=== PATIENT | male | born 1960 | race Caucasian/White ===

== ENCOUNTER 2019-11-05 08:27 | Emergency (ER) | payer BC, OTHER, SELFPAY ==
[2019-11-05 08:35] VITALS: BP 109/75; PULSE 93; RESP 19; TEMP 36.7; O2SAT 99
--- NOTE | 2019-11-05 08:40 | DI.RAD.S_ITS ---
PROCEDURE: XR CHEST 1V INDICATIONS: leg swelling, possible syncope TECHNIQUE: One view of the chest was acquired. COMPARISON: None. FINDINGS: Surgical changes and devices: None. Lungs and pleura: Lungs are clear. No pleural effusions or pneumothorax. Mediastinum: Mediastinal contours appear normal. Heart size is normal. Bones and chest wall: No suspicious bony lesions. Overlying soft tissues appear unremarkable. IMPRESSION: No acute process. Dictated by: Mark Anthony Zuniga M.D. on 11/05/2019 at 9:11 Approved by: Mark Anthony Zuniga M.D. on 11/05/2019 at 9:11
[2019-11-05 09:04] VITALS: BMI 20.3
[2019-11-05 09:15] VITALS: BP 96/59; PULSE 98; RESP 17; O2SAT 99
--- NOTE | 2019-11-05 09:29 | ED.EXTPRO ---
HPI - Extremity Problem General Chief complaint: Extremity Problem,Nontraumatic Stated complaint: both legs swollen Time Seen by Provider: 11/05/19 08:29 Source: patient Mode of arrival: Family Vehicle Limitations: no limitations History of Present Illness HPI Narrative: 59-year-old male daily smoker with noncontributory medical history presents with his family member in the chief complaint of lower extremity swelling over the past few days to weeks. He denies any chest pain or shortness of breath. He denies fever or chills. He denies any dietary or medication change. He states this happened once before after eating a significant amount of fast food. He states that he has been living a slightly more sedentary lifestyle due to the [employer] and frequently has his legs hanging down from a chair or couch. He denies any history of cardiac, renal or liver problems MD Complaint: extremity swelling Onset (ago): week(s) Location: left and right Radiation: none Relieving factors: nothing Exacerbating factors: nothing Associated symptoms: denies other symptoms Related Data Previous Rx's Medication Instructions Recorded furosemide 20 mg PO DAILY #7 tab 11/05/19 Allergies Allergy/AdvReac Type Severity Reaction Status Date / Time No Known Drug Allergies Allergy Verified 11/05/19 09:09 Review of Systems Constitutional Constitutional: Denies chills, Denies fatigue, Denies fever(s), Denies frequent falls, Denies lethargy and Denies weakness Eyes Eyes: Denies change in vision, Denies eye discharge, Denies irritation and Denies loss of vision ENT Ears, Nose, Mouth, and Throat: Denies change in voice, Denies dizziness, Denies neck pain, Denies sore throat and Denies throat swelling Cardiovascular Cardiovascular: Denies chest pain, Reports pedal edema, Denies irregular heart rhythm, Denies lightheadedness, Denies palpitations, Denies dyspnea, Denies dyspnea on exertion and Denies orthopnea Respiratory Respiratory: Denies cough, Denies dyspnea, Denies dyspnea on exertion and Denies wheezing Gastrointestinal Gastrointestinal: Denies abdominal pain, Denies change in bowel habits, Denies diarrhea, Denies nausea and Denies vomiting Genitourinary Genitourinary: Denies hematuria, Denies flank pain, Denies urinary incontinence and Denies urinary urgency Musculoskeletal Musculoskeletal: Denies back pain, Denies muscle weakness, Denies neck pain, Denies numbness and Denies tingling Integumentary/Breasts Skin/Breast: Denies pruritus, Denies erythema, Denies rash and Denies wounds Neurologic Neurologic: Denies behavioral changes, Denies confusion, Denies dizziness, Denies frequent falls, Denies loss of vision, Denies numbness, Denies tingling and Denies weakness Psychiatric Psychiatric: Denies anxiety, Denies behavioral changes, Denies confusion, Denies depression, Denies homicidal ideation and Denies suicidal ideation Endocrine Endocrine: Denies fatigue, Denies flushing and Denies palpitations Hematologic/Lymphatic Hematologic/Lymphatic: Denies easy bruising Allergic/Immunologic Allergic/Immunologic: Denies urticaria, Denies throat swelling and Denies wheezing Patient History Social History Smoking Status: Current every day smoker Smoking Status: Current every day smoker tobacco type: cigarettes Substance Use Type: does not use Exam Narrative Exam Narrative: GENERAL: [59] year old patient appears stated age. Well-nourished, well-developed patient, in mild distress. HEAD: Atraumatic. Normocephalic. EYES: Pupils equal round and reactive. Extraocular motions intact. No scleral icterus. No injection or drainage. ENT: Nose without bleeding, purulent drainage. Throat without erythema, tonsillar hypertrophy or exudate. Airway patent. NECK: Trachea midline. Non tender CARDIOVASCULAR: Regular rate and rhythm without murmurs, gallops, or rubs. RESPIRATORY: Decreased breath sounds bilaterally with prolonged expiratory phase GASTROINTESTINAL: Abdomen soft, non-tender, nondistended. EXTREMITIES: 2+ pitting edema bilateral lower extremities with minimal erythema, no pain or tenderness BACK: Nontender without deformity or crepitance. No flank tenderness. NEURO: AOx3. SKIN: No rash or erythema of visible areas other than that which is noted above Initial Vital Signs Initial Vital Signs: Vital Signs Temperature 98.0 F 11/05/19 08:35 Pulse Rate 93 H 11/05/19 08:35 Respiratory Rate 19 11/05/19 08:35 Blood Pressure 109/75 11/05/19 08:35 Pulse Oximetry 99 11/05/19 08:35 Course Orders Ordered: ED Orders 11/05/19 08:40 XR chest 1V Stat EKG-12 Lead Stat 11/05/19 09:18 Complete Blood Count AUTO DIFF Stat Comprehensive Metabolic Panel Stat D Dimer Stat Lipase Stat NT-proBNP (BNP-Adult 18+) Stat Procalcitonin Stat Troponin & CK Cardiac Panel Stat Discontinued Medications Sodium Chloride (Normal Saline 0.9%) 1,000 mls @ 150 mls/hr IV CONT ALEX Last Admin: 11/05/19 09:31 Dose: 150 mls/hr Documented by: JONNATHAN Vital Signs Vital signs: Vital Signs - 8 hr 11/05/19 08:35 11/05/19 09:15 11/05/19 10:58 Temperature 98.0 F Pulse Rate 93 H 98 H 96 H Respiratory Rate 19 17 20 Blood Pressure 115/75 Blood Pressure [Right Arm] 109/75 96/59 L Pulse Oximetry 99 99 98 MDM - Extremity (Nontraumatic) Lab Data Result diagrams: 11/05/19 09:18 11/05/19 09:18 Labs: Lab Results 11/05/19 11/05/19 11/05/19 Range/Units 09:18 09:18 09:18 WBC 8.1 (4.5-11.0) X10^3/uL RBC 3.33 L (4.5-5.9) X10^6/uL Hgb 12.3 L (13.5-17.5) g/dL Hct 35.5 L (41-53) % MCV 106.6 H (80-100) fL MCH 36.9 H (26-34) PG MCHC 34.6 (30-36) % RDW 13.5 (11.6-14.8) % Plt Count 532 H (150-400) X10^3/uL Neut % (Auto) 63.0 (50-75) % Lymph % (Auto) 25.2 (25-40) % Mccormick % (Auto) 6.9 (3-14) % Eos % (Auto) 3.6 (2-4) % Baso % (Auto) 1.3 (0-2) % Neut # (Auto) 5100 (1453-5894) /uL Lymph # (Auto) 2000 (1035-4004) /uL Mccormick # (Auto) 600 (0-900) /uL Eos # (Auto) 300 (0-450) /uL Baso # (Auto) 100 (0-100) /uL D-Dimer < 200 (<230) ng/mL Sodium 138 (137-145) mmol/L Potassium 4.2 (3.4-5.1) mmol/L Chloride 102 (98-107) mmol/L Carbon Dioxide 26 (22-32) mmol/L BUN 13 (9-20) mg/dL Creatinine 0.80 (0.66-1.25) mg/dL Estimated GFR > 60.0 (>60) mL/min BUN/Creatinine Ratio 16.3 (6-22) Glucose 92 (80-110) mg/dL Calcium 9.1 (8.4-10.2) mg/dL Total Bilirubin 0.2 (0.2-1.3) mg/dL AST 34 (17-59) IU/L ALT 45 (<50) IU/L Alkaline Phosphatase 98 (38-126) U/L Total Creatine Kinase 54 L (55-170) U/L CK-MB (CK-2) TNP CK-MB (CK-2) Rel Index TNP Troponin I < 0.012 (0.01-0.034) ng/mL NT-Pro-B Natriuret Pep 58 (<125) pg/mL Total Protein 7.5 (6.3-8.2) g/dL Albumin 4.3 (3.5-5.0) g/dL Globulin 3.2 (1.7-4.1) g/dL Albumin/Globulin Ratio 1.3 (1.0-2.8) Lipase 49 (23-300) U/L Procalcitonin (<0.5) ng/mL 11/05/19 Range/Units 09:18 WBC (4.5-11.0) X10^3/uL RBC (4.5-5.9) X10^6/uL Hgb (13.5-17.5) g/dL Hct (41-53) % MCV (80-100) fL MCH (26-34) PG MCHC (30-36) % RDW (11.6-14.8) % Plt Count (150-400) X10^3/uL Neut % (Auto) (50-75) % Lymph % (Auto) (25-40) % Mccormick % (Auto) (3-14) % Eos % (Auto) (2-4) % Baso % (Auto) (0-2) % Neut # (Auto) (4951-5269) /uL Lymph # (Auto) (6501-9843) /uL Mccormick # (Auto) (0-900) /uL Eos # (Auto) (0-450) /uL Baso # (Auto) (0-100) /uL D-Dimer (<230) ng/mL Sodium (137-145) mmol/L Potassium (3.4-5.1) mmol/L Chloride (98-107) mmol/L Carbon Dioxide (22-32) mmol/L BUN (9-20) mg/dL Creatinine (0.66-1.25) mg/dL Estimated GFR (>60) mL/min BUN/Creatinine Ratio (6-22) Glucose (80-110) mg/dL Calcium (8.4-10.2) mg/dL Total Bilirubin (0.2-1.3) mg/dL AST (17-59) IU/L ALT (<50) IU/L Alkaline Phosphatase (38-126) U/L Total Creatine Kinase (55-170) U/L CK-MB (CK-2) CK-MB (CK-2) Rel Index Troponin I (0.01-0.034) ng/mL NT-Pro-B Natriuret Pep (<125) pg/mL Total Protein (6.3-8.2) g/dL Albumin (3.5-5.0) g/dL Globulin (1.7-4.1) g/dL Albumin/Globulin Ratio (1.0-2.8) Lipase (23-300) U/L Procalcitonin 0.09 (<0.5) ng/mL Urine Dip Bedside Urine Glucose Negative Bedside Urine Bilirubin - Negative Bedside Urine Ketone - Negative Urine Specific [place] 1.010 Bedside Urine Occult Blood - Negative Bedside Urine pH 6.0 Bedside Urine Protein - Negative Bedside Urine Urobilinogen - Negative Bedside Urine Nitrite - Negative Bedside Urine Leukocytes - Negative Esterase Imaging Data Chest x-ray: Radiologist's Impression: Chart Viewer Diagnostics DATE TYPE STATUS AUTHOR Hx 11/05/19 08:40 Mark Anthony Zuniga Michael S 59, M0 1960 REG ER, [facility] ED R11 170.18cm 58.967kg BMI: 20.4kg/m? Extremity Problem,Nontraumatic Search Chart No Data to Display No Data to Display No Data to Display Today 09:15 Bello Mcdonald 59 M [address] [address] XRay Report Signed Patient: Bello Mcdonald [facility]#: [id number] : 9Acct:[id number] Age/Sex: 59 / MDate of Service: 11/05/19 Loc: ED Accession Number: [id number] Procedure: XR chest 1V Ordering Provider: Jose Antonio Rizzo D.O. PROCEDURE: XR CHEST 1V INDICATIONS: leg swelling, possible syncope TECHNIQUE: One view of the chest was acquired. COMPARISON: None. FINDINGS: Surgical changes and devices: None. Lungs and pleura: Lungs are clear. No pleural effusions or pneumothorax. Mediastinum: Mediastinal contours appear normal. Heart size is normal. Bones and chest wall: No suspicious bony lesions. Overlying soft tissues appear unremarkable. IMPRESSION: No acute process. Dictated by: Mark Anthony Zuniga M.D. on 11/05/2019 at 9:11 Approved by: Mark Anthony Zuniga M.D. on 11/05/2019 at 9:11 ECG Data Attestation EKG: I personally reviewed and interpreted this ECG as follows: Interpretation: Mild sinus tachycardia with rate 103 and free of any signs of ischemia or ectopy. No ST segmental elevation or depression. No T wave inversions MDM Narrative Medical decision making narrative: Multiple diagnoses considered includin. DVT - thought less likely given bilateral distribution, negative DDimer, lack of pain 2. Cellulilitis - thought less likely given bilateral distribution, lack of pain, reassuring labs 3. CHF considered but thought less likely given lack of other symptoms such as SOB or weakness, lack of abnormal vitals, CXR findings, normal BNP 4. Kidney disease - thought less likely given lack of other symptoms and reassuring labs 5. Dependent edema considered most likely given reassuring story, labs, exam Patient given return precautions and has had is question answered to his apparent satisfaction Discharge Plan Departure Patient Disposition: Home Clinical Impression: Lower extremity edema Discharge Date/Time: 11/05/19 10:59 Instructions: DI for Dependent Edema Activity Restrictions/Additional Instructions: *You have been diagnosed with [bilateral lower extremity edema] *What to do: *Take medications as directed *Follow up with your primary care provider in 2-3 days, call for an appointment. Let them know you were seen in the Emergency Department and that we ask that you be seen in follow up *Return to ER if you should have any new, worsening or concerning symptoms, such as [chest pain, shortness of breath, fever, chills or other bothersome symptoms] Prescriptions: New furosemide 20 mg tablet 20 mg PO DAILY Qty: 7 RF: 0 Referrals: [facility] [Outside]
[2019-11-05 09:30] LABS: Add Manual Diff / Slide Review NO; Basophils Absolute Auto 100 /uL (0-100); Basophils Percent Auto 1.3 % (0-2); Eosinophils Absolute Auto 300 /uL (0-450); Eosinophils Percent Auto 3.6 % (2-4); Hematocrit 35.5 % (41-53); Hemoglobin 12.3 g/dL (13.5-17.5); Lymphocytes Absolute Auto 2000 /uL (1100-4500); Lymphocytes Percent Auto 25.2 % (25-40); Mean Corpuscular HGB Conc 34.6 % (30-36); Mean Corpuscular Hemoglobin 36.9 PG (26-34); Mean Corpuscular Volume 106.6 fL (80-100); Monocytes Absolute Auto 600 /uL (0-900); Monocytes Percent Auto 6.9 % (3-14); Neutrophils Absolute Auto 5100 /uL (1500-7000); Platelet Count 532 X10^3/uL (150-400); Red Blood Cell Count 3.33 X10^6/uL (4.5-5.9); Red Cell Distribution Width 13.5 % (11.6-14.8); White Blood Cell Count 8.1 X10^3/uL (4.5-11.0)
[2019-11-05] MEDS: SODIUM CHLORIDE 0.9% 1,000 ML 150 ML IV (09:31)
[2019-11-05 09:38] LABS: D Dimer < 200 ng/mL (<230)
[2019-11-05 09:39] LABS: Alanine Aminotransferase 45 IU/L (<50); Albumin 4.3 g/dL (3.5-5.0); Albumin Globulin Ratio 1.3 (1.0-2.8); Alkaline Phosphatase 98 U/L (38-126); Aspartate Aminotransferase 34 IU/L (17-59); BUN Creatinine Ratio 16.3 (6-22); Bilirubin Total 0.2 mg/dL (0.2-1.3); Blood Urea Nitrogen 13 mg/dL (9-20); Calcium 9.1 mg/dL (8.4-10.2); Carbon Dioxide 26 mmol/L (22-32); Chloride 102 mmol/L (98-107); Creatine Kinase 54 U/L (55-170); Estimated Glomerular Filt Rate > 60.0 mL/min (>60); Globulin 3.2 g/dL (1.7-4.1); Glucose 92 mg/dL (80-110); HEMOLYSIS < 15 (0-50); Lipase 49 U/L (23-300); Potassium 4.2 mmol/L (3.4-5.1); Sodium 138 mmol/L (137-145); Total Protein 7.5 g/dL (6.3-8.2)
[2019-11-05 09:51] LABS: NT-proBNP (BNP-Adult 18+) 58 pg/mL (<125); Troponin I < 0.012 ng/mL (0.01-0.034)
[2019-11-05 09:54] LABS: Procalcitonin 0.09 ng/mL (<0.5)
[2019-11-05 10:58] VITALS: BP 115/75; PULSE 96; RESP 20; O2SAT 98
== END 2019-11-05 10:59 | disposition home or self-care (01) ==
PROVIDERS: Emergency Provider Emergency Medicine
DX: R60.0 Localized edema (principal)
CPT/HCPCS: 36415; 71045; 80053; 81003; 82550; 83690; 83880; 84145; 84484; 85025; 85379; 93005; 99284

== ENCOUNTER 2020-03-10 18:53 | Emergency (ER) | payer OTHER, SELFPAY ==
[2020-03-10 19:00] VITALS: BP 110/76; PULSE 112; RESP 21; TEMP 36.8; O2SAT 94; BMI 20.7
[2020-03-10 19:02] VITALS: PULSE 108; O2SAT 93
[2020-03-10 19:36] VITALS: PULSE 94; O2SAT 94
--- NOTE | 2020-03-10 19:41 | ED.EXTPRO ---
HPI - Extremity Problem General Chief complaint: Extremity Problem,Nontraumatic Stated complaint: bilateral edema lower legs Time Seen by Provider: 03/10/20 19:18 Source: patient Mode of arrival: Ambulatory Limitations: no limitations History of Present Illness HPI Narrative: Patient is a 60-year-old male. History of high blood pressure. Here for evaluation of bilateral lower extremity swelling and redness. He states that he has had lower extremity swelling for the past month if not potentially a little bit longer but has noticed it has become more red and painful over the past couple days. No fevers. No chest pain. No shortness of breath. He has on hydrochlorothiazide and also 20 mg of furosemide on a daily basis this is prescribed by his primary provider. He states that he went about 1 month without taking any of his medications because he was going through a ?decision period with regard to what he was going to do at work and also his health. He has restarted his medications and has been on them for the past week or so. He stated that he has been given antibiotics in the past because of the redness in his lower extremity. He took them as directed and there was no improvement. He is here because the swelling makes his legs hurt. Related Data Previous Rx's Medication Instructions Recorded furosemide 20 mg PO DAILY #7 tab 11/05/19 Allergies Allergy/AdvReac Type Severity Reaction Status Date / Time No Known Drug Allergies Allergy Verified 03/10/20 19:05 Review of Systems Constitutional Constitutional: Denies fever(s) Cardiovascular Cardiovascular: Denies chest pain and Denies dyspnea Respiratory Respiratory: Denies dyspnea Gastrointestinal Gastrointestinal: Denies abdominal pain Musculoskeletal Comments: Bilateral leg pain Integumentary/Breasts Comments: Redness and swelling bilateral legs Neurologic Neurologic: Denies behavioral changes Psychiatric Psychiatric: Denies behavioral changes Hematologic/Lymphatic Hematologic/Lymphatic: Denies easy bleeding and Denies easy bruising Patient History Medical History Hypertension (Acute) Peripheral edema (Acute) Social History Smoking Status: Current every day smoker Smoking Status: Current every day smoker tobacco type: cigarettes alcohol intake frequency: 3 or more drinks per day Substance Use Type: does not use Exam Initial Vital Signs Initial Vital Signs: Vital Signs Temperature 98.3 F 03/10/20 19:00 Pulse Rate 112 H 03/10/20 19:00 Respiratory Rate 21 03/10/20 19:00 Blood Pressure 110/76 03/10/20 19:00 Pulse Oximetry 94 03/10/20 19:00 Const General: cooperative and comfortable Limitations: mental status not altered [facility] Head: normal to inspection and normocephalic Resp Effort & Inspection: normal respiratory effort Cardio Rate: regular rate Pulses: dorsalis pedis present bilaterally Skin Other: Patient has bilateral redness circumferential from his toes to just proximal to his knees bilaterally. Some warmth however it is equal bilaterally. There is lichenification and pitting secondary to edema. Some crust on the anterior shins bilaterally with left being greater than right Neuro General: patient alert and patient awake Extrem General: edema Psych Appearance: grossly normal and well kempt Course Vital Signs Vital signs: Vital Signs - 8 hr 03/10/20 19:00 03/10/20 19:02 03/10/20 19:36 Temperature 98.3 F Pulse Rate 112 H 108 H 94 H Respiratory Rate 21 Blood Pressure 110/76 Pulse Oximetry 94 93 94 03/10/20 20:00 Temperature Pulse Rate 94 H Respiratory Rate Blood Pressure Pulse Oximetry 93 MDM - Extremity (Nontraumatic) MDM Narrative Medical decision making narrative: No chest pain. No shortness of breath. Patient does have bilateral lower extremity redness and swelling. The redness appears to be equal bilateral. He has been on antibiotics in the past without any improvement and I feel that this is less likely an infection and more likely venous stasis changes. He does have lichenification bilaterally. His legs look like they have been swollen for an extended period of time. He is neurovascularly intact. There is no indication for antibiotics. He is taking HCTZ and furosemide. Plan to bees increase his furosemide to 40 mg on a daily basis. He states he has plenty of this medication at home. Informed that he should contact his primary doctor to discuss referral to see Cardiology and potentially an echocardiogram as he states he has not had this performed to this point. We also discussed importance of him keeping his feet clean and dry as when I took his socks off for his exam they were soaking wet with sweat. He states that his feet do sweat quite a bit. We discussed things he could do to include changing his socks often. Patient was given return precautions and follow-up instructions. He expressed understanding and agreement. Discharge Plan Departure Patient Disposition: Home Clinical Impression: Lower extremity edema Discharge Date/Time: 03/10/20 20:20 Instructions: DI for Peripheral Edema -- Bilateral Activity Restrictions/Additional Instructions: I recommend that you continue your lisinopril and hydrochlorothiazide as directed. I recommend that you increase your furosemide/Lasix from 20 mg a day to 40 mg a day. Like we discussed I also recommend that you change your socks frequently and keep your feet elevated. I recommend that tomorrow you contact her primary doctor's office to schedule a follow-up appointment and to discuss the indications for further testing of your heart to include an echocardiogram. Return to the emergency department for any new or worsening symptoms Prescriptions: No Action furosemide 20 mg tablet 20 mg PO DAILY Qty: 7 RF: 0
[2020-03-10 20:00] VITALS: PULSE 94; O2SAT 93
== END 2020-03-10 20:20 | disposition home or self-care (01) ==
PROVIDERS: Emergency Provider Emergency Medicine
DX: R60.0 Localized edema (principal); M79.605 Pain in left leg; M79.604 Pain in right leg; I10 Essential (primary) hypertension
CPT/HCPCS: 99281

== ENCOUNTER 2020-12-26 12:11 | Inpatient (IN) | payer OTHER, SELFPAY ==
[2020-12-26] VITALS (20 sets, daily range): BP systolic 98–139; BP diastolic 54–88; PULSE 103–116; RESP 15–22; TEMP 36.1–37.3; O2SAT 90–100; BMI 25.0
--- NOTE | 2020-12-26 12:29 | DI.RAD.S_ITS ---
PROCEDURE: XR CHEST 1V INDICATIONS: suspected sepsis TECHNIQUE: One view of the chest was acquired. COMPARISON: [facility], CR, XR CHEST 1V, 11/05/2019, 9:02. FINDINGS: Surgical changes and devices: None. Lungs and pleura: Lungs are clear. No pleural effusions or pneumothorax. Mediastinum: Mediastinal contours appear normal. Heart size is normal. Bones and chest wall: No suspicious bony lesions. Overlying soft tissues appear unremarkable. IMPRESSION: Normal for age, source of current sepsis symptoms is not seen. Dictated by: Daniel Garcia M.D. on 12/26/2020 at 13:34 Approved by: Daniel Garcia M.D. on 12/26/2020 at 13:34
[2020-12-26 13:08] LABS: Add Manual Diff / Slide Review NO; Basophils Absolute Auto 100 /uL (0-100); Basophils Percent Auto 0.9 % (0-2); Eosinophils Absolute Auto 100 /uL (0-450); Eosinophils Percent Auto 0.8 % (2-4); Hematocrit 34.4 % (41-53); Hemoglobin 11.9 g/dL (13.5-17.5); Lymphocytes Absolute Auto 1500 /uL (1100-4500); Lymphocytes Percent Auto 12.3 % (25-40); Mean Corpuscular HGB Conc 34.5 % (30-36); Mean Corpuscular Hemoglobin 34.2 PG (26-34); Monocytes Absolute Auto 700 /uL (0-900); Monocytes Percent Auto 5.6 % (3-14); Neutrophils Absolute Auto 9700 /uL (1500-7000); Neutrophils Percent Auto 80.4 % (50-75); Platelet Count 466 X10^3/uL (150-400); Red Blood Cell Count 3.48 X10^6/uL (4.5-5.9); Red Cell Distribution Width 13.1 % (11.6-14.8); White Blood Cell Count 12.1 X10^3/uL (4.5-11.0)
[2020-12-26 13:17] LABS: Lactate (Lactic Acid) 1.7 mmol/L (0.7-2.1)
[2020-12-26 13:18] LABS: Alanine Aminotransferase 26 IU/L (<50); Albumin 3.7 g/dL (3.5-5.0); Albumin Globulin Ratio 1.1 (1.0-2.8); Alkaline Phosphatase 128 U/L (38-126); Aspartate Aminotransferase 39 IU/L (17-59); BUN Creatinine Ratio 9.2 (6-22); Bilirubin Total 0.3 mg/dL (0.2-1.3); Blood Urea Nitrogen 6 mg/dL (9-20); Calcium 8.8 mg/dL (8.4-10.2); Carbon Dioxide 24 mmol/L (22-32); Chloride 92 mmol/L (98-107); Creatine Kinase 251 U/L (55-170); Estimated Glomerular Filt Rate > 60.0 mL/min (>60); Globulin 3.3 g/dL (1.7-4.1); Glucose 96 mg/dL (80-110); HEMOLYSIS < 15 (0-50); Lipase 32 U/L (23-300); Potassium 4.4 mmol/L (3.4-5.1); Sodium 123 mmol/L (137-145)
--- NOTE | 2020-12-26 13:23 | ED_ITS ---
HPI - Wound/Laceration General Chief Complaint: Wound/Laceration Stated Complaint: legs are swollen and legs look infected Time Seen by Provider: 12/26/20 12:41 History of Present Illness HPI narrative: Patient is a 60-year-old male with history of hypertension, COPD and chronic lower extremity edema presenting with increasing lower extremity weakness. He does have significant crusted over skin in both extremities. He has had weeping from bilateral lower extremities somewhat so that his socks were stuck to him. He is progressively gotten weaker over time however over the last week it has gotten much worse and his last night he was really unable to get around. He needed to call the ambulance today to get him to the car he did not want to come by ambulance. He denies any fever chills. He does have a cough but he does is not any worse. He occasionally has chest pain but it is not any chest pain now. Related Data Home Medications Medication Instructions Recorded Confirmed albuterol sulfate 90 mcg/actuation 2 puff INHALATION Q4H PRN 12/26/20 12/26/20 aerosol inhaler (ProAir HFA) furosemide 40 mg tablet 40 mg PO QAM 12/26/20 12/26/20 lisinopril 20 mg tablet 20 mg PO QAM 12/26/20 12/26/20 lisinopril 20 1 tab PO QAM 12/26/20 12/26/20 mg-hydrochlorothiazide 25 mg tablet potassium chloride 20 mEq 20 meq PO QAM 12/26/20 12/26/20 tablet,extended release(part/cryst) Allergies Allergy/AdvReac Type Severity Reaction Status Date / Time No Known Drug Allergies Allergy Verified 03/10/20 19:05 Review of Systems Review of Systems Narrative: GENERAL: Denies chills, fatigue, malaise, fever, sweats, travel HEENT: Denies sinus pain, ear pain, sore throat, difficulty swallowing, neck pain RESPIRATORY: Denies dyspnea, cough, wheezing, hemoptysis, sputum. CARDIOVASCULAR: Denies chest pain, palpitations, orthopnea, edema GASTROINTESTINAL: Denies nausea, vomiting, abdominal pain, diarrhea, constipation, melena. : Denies dysuria, frequency, incontinence, hematuria, urinary retention, flank pain. MUSCULOSKELETAL: Denies weakness, joint pain, or bony pain SKIN: Chronic worsening wounds NEUROLOGIC: Denies weakness, dizziness, headache, numbness, change in speech, confusion PSYCHIATRIC: No concerning psychosocial issues. 12 point review of systems is negative except for those stated above and HPI Patient History Medical History (Updated 12/26/20 @ 16:28 by Joel Bañuelos MD) Alcohol dependence, daily use Hypertension Nicotine addiction Peripheral edema Surgical History (Updated 12/26/20 @ 16:28 by Joel Bañuelos MD) History of appendectomy Family History (Updated 12/26/20 @ 16:29 by Joel Bañuelos MD) Father Myocardial infarct Diabetes mellitus Mother Diabetes mellitus Myocardial infarct Stroke Social History household members: none Smoking Status: Current every day smoker Smoking Status: Current every day smoker tobacco type: cigarettes alcohol intake frequency: 3 or more drinks per day Substance Use Type: does not use Exam Initial Vital Signs Initial Vital Signs: Vital Signs Temperature 96.9 F L 12/26/20 12:17 Pulse Rate 112 H 12/26/20 12:17 Respiratory Rate 16 12/26/20 12:17 Blood Pressure 112/88 12/26/20 12:17 Pulse Oximetry 98 12/26/20 12:17 GENERAL: 60-year-old male no acute distress HEENT: Head atraumatic,EOMI, pupils reactive, face symmetric, moist mucous membranes CARDIOVASCULAR: Regular rate and rhythm without murmurs, rubs or gallops. RESPIRATORY: Breath sounds equal bilaterally, no wheezes rales or rhonchi. ABDOMEN: Soft, nontender. Normoactive bowel sounds all 4 quadrants. No guarding or rebound. EXTREMITIES: Normal range of motion, no clubbing or edema. Neurovascularly intact NEUROLOGICAL: Alert and oriented x4.Normal gait and speech. SKIN: Lower extremities crusting and thick from knees to toes. Socks were stuck to the feet and had to be cut away. Smell was overwhelming. erythematous left foot is definitely more erythematous than the right Course Orders Ordered: ED Orders 12/26/20 12:29 XR chest 1V Stat EKG-12 Lead Stat RT Consult Eval and Treat Now 12/26/20 12:53 Complete Blood Count AUTO DIFF Stat Comprehensive Metabolic Panel Stat Lactate (Lactic Acid) Stat Lipase Stat NT-proBNP (BNP-Adult 18+) Stat Procalcitonin Stat Troponin & CK Cardiac Panel Stat 12/26/20 13:05 COVID19 - ADMIT (SLEEVE BOTTOM FELLER swab/PCR) Stat COVID19 -Nasal swab/Pre-Proc Stat 12/26/20 13:15 Blood Culture Stat Albuterol (Albuterol 2.5 Mg/3 Ml Neb (Adult)) 2.5 mg INH Q4H PRN PRN Reason: Wheezing Cefazolin Sodium (Cefazolin 1 Gm Vial) 2 gm IV Q8H ALEX Enoxaparin Sodium (Enoxaparin 40 Mg/0.4 Ml Syringe) 40 mg SUBCUT DAILY ALEX Hydromorphone HCl (Hydromorphone 0.5 Mg Inj) 0.5 mg IV Q6H PRN PRN Reason: Pain, Moderate (4-6) Dextrose/Sodium Chloride (Dextrose 5%-0.9% Ns) 1,000 mls @ 100 mls/hr IV CONT ALEX Naloxone HCl (Naloxone 0.4 Mg/Ml Vial) 0.2 mg IV Q2MIN PRN PRN Reason: Opiate Reversal Nicotine (Nicotine 21 Mg Patch) 21 mg TOP DAILY ALEX Oxycodone/Acetaminophen (Oxycodone/Acetaminophen 5/325 Tablet) 1 tab PO Q4HR PRN PRN Reason: Pain, Moderate (4-6) Sennosides (Sennosides 8.6 Mg Tablet) 17.2 mg PO BEDTIME ALEX Triamcinolone Acetonide (Triamcinolone 0.1% Cream) 1 applic TOP BID ALEX Discontinued Medications Albuterol/Ipratropium (Albuterol/Ipratropium 3 Ml Ampul) 3 ml INH NOW ONE Stop: 12/26/20 14:19 Last Admin: 12/26/20 14:35 Dose: 3 ml Documented by: LARRY Sodium Chloride (Normal Saline 0.9%) 1,000 mls @ 1,000 mls/hr IV BOLUS ONE Stop: 12/26/20 13:27 Last Admin: 12/26/20 12:59 Dose: Not Given Documented by: CARMEN Ceftriaxone Sodium 1,000 mg/ (Sodium Chloride) 100 mls @ 200 mls/hr IV NOW ONE Stop: 12/26/20 14:09 Last Infusion: 12/26/20 15:55 Dose: 0 mls/hr Documented by: Admin: 12/26/20 14:50 Dose: 200 mls/hr Documented by: OLGA Vancomycin HCl (Vancomycin) 1,000 mg in 200 mls @ 200 mls/hr IV NOW ONE Stop: 12/26/20 15:07 Last Infusion: 12/26/20 15:55 Dose: 0 mls/hr Documented by: Admin: 12/26/20 14:47 Dose: 200 mls/hr Documented by: OLGA CEFAZOLIN SODIUM IN 0.9 % NACL (Ancef Premix) 100 mls @ 200 mls/hr IV Q8H ALEX Lorazepam (Lorazepam 2 Mg/Ml Inj) 0.5 mg IV NOW ONE Stop: 12/26/20 15:11 Last Admin: 12/26/20 15:50 Dose: 0.5 mg Documented by: OLGA Nicotine (Nicotine 21 Mg Patch) 21 mg TOP NOW ONE Stop: 12/26/20 15:11 Last Admin: 12/26/20 15:48 Dose: 21 mg Documented by: OLGA Vital Signs Vital signs: Vital Signs - 8 hr 12/26/20 12:17 12/26/20 13:13 12/26/20 13:15 Temperature 96.9 F L Pulse Rate 112 H 107 H 104 H Respiratory Rate 16 19 16 Blood Pressure 112/88 107/63 Pulse Oximetry 98 98 97 12/26/20 13:30 12/26/20 13:45 12/26/20 14:00 Temperature Pulse Rate 107 H 107 H 109 H Respiratory Rate 20 20 19 Blood Pressure 117/64 116/65 107/60 Pulse Oximetry 98 99 100 12/26/20 14:15 12/26/20 14:30 12/26/20 14:45 Temperature Pulse Rate 105 H 103 H 105 H Respiratory Rate 20 18 16 Blood Pressure 104/57 L 102/58 L 98/57 L Pulse Oximetry 98 99 100 12/26/20 14:47 12/26/20 15:00 Temperature Pulse Rate 104 H 112 H Respiratory Rate 16 22 Blood Pressure 113/66 Pulse Oximetry 96 97 MDM - Wound/Laceration Lab Data Result diagrams: 12/26/20 12:53 12/26/20 12:53 Labs: Lab Results 12/26/20 12/26/20 12/26/20 Range/Units 12:53 12:53 12:53 WBC 12.1 H (4.5-11.0) X10^3/uL RBC 3.48 L (4.5-5.9) X10^6/uL Hgb 11.9 L (13.5-17.5) g/dL Hct 34.4 L (41-53) % MCV 99.0 (80-100) fL MCH 34.2 H (26-34) PG MCHC 34.5 (30-36) % RDW 13.1 (11.6-14.8) % Plt Count 466 H (150-400) X10^3/uL Neut % (Auto) 80.4 H (50-75) % Lymph % (Auto) 12.3 L (25-40) % [place] % (Auto) 5.6 (3-14) % Eos % (Auto) 0.8 L (2-4) % Baso % (Auto) 0.9 (0-2) % Neut # (Auto) 9700 H (4763-2722) /uL Lymph # (Auto) 1500 (0903-3540) /uL [place] # (Auto) 700 (0-900) /uL Eos # (Auto) 100 (0-450) /uL Baso # (Auto) 100 (0-100) /uL Sodium 123 L (137-145) mmol/L Potassium 4.4 (3.4-5.1) mmol/L Chloride 92 L (98-107) mmol/L Carbon Dioxide 24 (22-32) mmol/L BUN 6 L (9-20) mg/dL Creatinine 0.65 L (0.66-1.25) mg/dL Estimated GFR > 60.0 (>60) mL/min BUN/Creatinine Ratio 9.2 (6-22) Glucose 96 (80-110) mg/dL Lactate 1.7 (0.7-2.1) mmol/L Calcium 8.8 (8.4-10.2) mg/dL Magnesium (1.6-2.3) mg/dL Total Bilirubin 0.3 (0.2-1.3) mg/dL AST 39 (17-59) IU/L ALT 26 (<50) IU/L Alkaline Phosphatase 128 H (38-126) U/L Total Creatine Kinase (55-170) U/L CK-MB (CK-2) (<2.37) ng/mL CK-MB (CK-2) Rel Index (1.5-5.0) % Troponin I (0.01-0.034) ng/mL NT-Pro-B Natriuret Pep (<125) pg/mL Total Protein 7.0 (6.3-8.2) g/dL Albumin 3.7 (3.5-5.0) g/dL Globulin 3.3 (1.7-4.1) g/dL Albumin/Globulin Ratio 1.1 (1.0-2.8) Lipase 32 (23-300) U/L Procalcitonin 2.37 H (<0.5) ng/mL SARS-CoV-2 (PCR) (Negative) 12/26/20 12/26/20 12/26/20 Range/Units 12:53 12:53 13:05 WBC (4.5-11.0) X10^3/uL RBC (4.5-5.9) X10^6/uL Hgb (13.5-17.5) g/dL Hct (41-53) % MCV (80-100) fL MCH (26-34) PG MCHC (30-36) % RDW (11.6-14.8) % Plt Count (150-400) X10^3/uL Neut % (Auto) (50-75) % Lymph % (Auto) (25-40) % [place] % (Auto) (3-14) % Eos % (Auto) (2-4) % Baso % (Auto) (0-2) % Neut # (Auto) (2375-7856) /uL Lymph # (Auto) (8070-8121) /uL [place] # (Auto) (0-900) /uL Eos # (Auto) (0-450) /uL Baso # (Auto) (0-100) /uL Sodium (137-145) mmol/L Potassium (3.4-5.1) mmol/L Chloride (98-107) mmol/L Carbon Dioxide (22-32) mmol/L BUN (9-20) mg/dL Creatinine (0.66-1.25) mg/dL Estimated GFR (>60) mL/min BUN/Creatinine Ratio (6-22) Glucose (80-110) mg/dL Lactate (0.7-2.1) mmol/L Calcium (8.4-10.2) mg/dL Magnesium 1.7 (1.6-2.3) mg/dL Total Bilirubin (0.2-1.3) mg/dL AST (17-59) IU/L ALT (<50) IU/L Alkaline Phosphatase (38-126) U/L Total Creatine Kinase 251 H (55-170) U/L CK-MB (CK-2) 4.75 H (<2.37) ng/mL CK-MB (CK-2) Rel Index 1.9 (1.5-5.0) % Troponin I < 0.012 (0.01-0.034) ng/mL NT-Pro-B Natriuret Pep 96 (<125) pg/mL Total Protein (6.3-8.2) g/dL Albumin (3.5-5.0) g/dL Globulin (1.7-4.1) g/dL Albumin/Globulin Ratio (1.0-2.8) Lipase (23-300) U/L Procalcitonin (<0.5) ng/mL SARS-CoV-2 (PCR) Negative (Negative) 12/26/20 Range/Units 13:05 WBC (4.5-11.0) X10^3/uL RBC (4.5-5.9) X10^6/uL Hgb (13.5-17.5) g/dL Hct (41-53) % MCV (80-100) fL MCH (26-34) PG MCHC (30-36) % RDW (11.6-14.8) % Plt Count (150-400) X10^3/uL Neut % (Auto) (50-75) % Lymph % (Auto) (25-40) % [place] % (Auto) (3-14) % Eos % (Auto) (2-4) % Baso % (Auto) (0-2) % Neut # (Auto) (9956-3133) /uL Lymph # (Auto) (1790-6485) /uL [place] # (Auto) (0-900) /uL Eos # (Auto) (0-450) /uL Baso # (Auto) (0-100) /uL Sodium (137-145) mmol/L Potassium (3.4-5.1) mmol/L Chloride (98-107) mmol/L Carbon Dioxide (22-32) mmol/L BUN (9-20) mg/dL Creatinine (0.66-1.25) mg/dL Estimated GFR (>60) mL/min BUN/Creatinine Ratio (6-22) Glucose (80-110) mg/dL Lactate (0.7-2.1) mmol/L Calcium (8.4-10.2) mg/dL Magnesium (1.6-2.3) mg/dL Total Bilirubin (0.2-1.3) mg/dL AST (17-59) IU/L ALT (<50) IU/L Alkaline Phosphatase (38-126) U/L Total Creatine Kinase (55-170) U/L CK-MB (CK-2) (<2.37) ng/mL CK-MB (CK-2) Rel Index (1.5-5.0) % Troponin I (0.01-0.034) ng/mL NT-Pro-B Natriuret Pep (<125) pg/mL Total Protein (6.3-8.2) g/dL Albumin (3.5-5.0) g/dL Globulin (1.7-4.1) g/dL Albumin/Globulin Ratio (1.0-2.8) Lipase (23-300) U/L Procalcitonin (<0.5) ng/mL SARS-CoV-2 (PCR) Negative (Negative) MDM Narrative Medical decision making narrative: Patient has acute on chronic lower extremity cellulitis. Smell is quite intense. He sounded mild leukocytosis of 12 he is afebrile and does not appear septic with a normal lactate. However procalcitonin is elevated any has new increasing weakness so I do believe his is infection is probably acute. He is given vancomycin and Rocephin. Dr. so updated on patient's symptoms and test results and happily accepts Discharge Plan Departure Patient Disposition: Admitted as Observation Clinical Impression: Cellulitis Admit Date/Time: 12/26/20 15:08 Admit Provider: Joel Bañuelos
[2020-12-26 13:31] LABS: NT-proBNP (BNP-Adult 18+) 96 pg/mL (<125); Troponin I < 0.012 ng/mL (0.01-0.034)
[2020-12-26 13:32] LABS: COVID19 -Nasal RAPID Negative (Negative)
[2020-12-26 13:34] LABS: CKMB % Relative Index 1.9 % (1.5-5.0); Creatine Kinase MB 4.75 ng/mL (<2.37)
[2020-12-26 13:35] LABS: Procalcitonin 2.37 ng/mL (<0.5)
[2020-12-26 14:19] LABS: COVID19 - ADMIT (NP swab/PCR) Negative (Negative)
[2020-12-26] MEDS: ALBUTEROL/IPRATROPIUM 3 ML AMPUL INH (14:35)
[2020-12-26] MEDS: VANCOMYCIN 1,000 MG/200 ML PIGGYBACK 200 MG IV (14:47)
[2020-12-26] MEDS: cefTRIAXone 1,000 MG in SODIUM CHLORIDE 0.9% 100 ML 200 ML IV (14:50)
--- NOTE | 2020-12-26 15:39 | P.HP_ITS ---
History of Present Illness History of Present Illness Date Patient Seen: 12/26/20 Time Patient Seen: 15:39 Chief complaint: legs are swollen and legs look infected Narrative: This is a 60-year-old male with a long history of peripheral edema and hypertension who presents with severe lower extremity weakness beginning several months ago and progressing to the point where he could not get off the floor when he fell off his chair last evening at 7:00 p.m. It took him 1 hour to get up on his knees. He eventually called his friend, who called paramedics to assist him and he was brought to the emergency department today. He is found to have a severe rash/infection of the chronic edema area on both lower legs and feet. His socks are ingrown to his skin and have to be cut off leaving a residual necrotic rotting smell. He is unable to say how long it has been since he changed his socks or why he did not remove them. He has had trouble walking for ?months?. He iss unable to specify any clearer than that. He lives on his own. He is on hydrochlorothiazide, furosemide and potassium chloride for edema and really has no edema on my evaluation today. He has had no fever but his procalcitonin is 2.3 and his white blood count is 12. His lactate level is only mildly elevated at 1.7. He will be treated with IV cefazolin and a wound care consult will be requested. His sodium level is 123, which could be contributing to his weakness. A magnesium level will also be done. Patient History Medical History (Updated 12/26/20 @ 16:28 by Joel Bañuelos MD) Alcohol dependence, daily use Hypertension Nicotine addiction Peripheral edema Surgical History (Updated 12/26/20 @ 16:28 by Joel Bañuelos MD) History of appendectomy Family & Social History Family History (Updated 12/26/20 @ 16:29 by Joel Bañuelos MD) Father Myocardial infarct Diabetes mellitus Mother Diabetes mellitus Myocardial infarct Stroke Safety & Behavioral: Feels Safe in Current Yes Environment Been Physically Hurt or No Threatened By a Person Tobacco & Substance use: Smoking Status Current every day smoker alcohol intake frequency 3 or more drinks per day Substance Use Type does not use Comment: His backup decision maker is his friend Ana Estes Home Medications and Allergies Home Medications Medication Instructions Recorded Confirmed Type albuterol sulfate 90 mcg/actuation 2 puff INHALATION Q4H PRN 12/26/20 12/26/20 History aerosol inhaler (ProAir HFA) furosemide 40 mg tablet 40 mg PO QAM 12/26/20 12/26/20 History lisinopril 20 mg tablet 20 mg PO QAM 12/26/20 12/26/20 History lisinopril 20 1 tab PO QAM 12/26/20 12/26/20 History mg-hydrochlorothiazide 25 mg tablet potassium chloride 20 mEq 20 meq PO QAM 12/26/20 12/26/20 History tablet,extended release(part/cryst) Allergies Allergy/AdvReac Type Severity Reaction Status Date / Time No Known Drug Allergies Allergy Verified 03/10/20 19:05 Review of Systems Review of Systems Narrative: Positive for leg edema, leg weakness, ?stubbornness. ? Negative for fevers, chills, sweats, nausea, vomiting, abdominal pain, chest pain, shortness breath, coughing, seizures, headaches, bleeding, dysuria, trouble talking, new allergies. Exam Vital Signs (past 8 hours): - 12/26/20 12:17 12/26/20 13:13 12/26/20 13:15 Temperature 96.9 F L Pulse Rate 112 H 107 H 104 H Respiratory Rate 16 19 16 Blood Pressure 112/88 107/63 Pulse Oximetry 98 98 97 12/26/20 13:30 12/26/20 13:45 12/26/20 14:00 Temperature Pulse Rate 107 H 107 H 109 H Respiratory Rate 20 20 19 Blood Pressure 117/64 116/65 107/60 Pulse Oximetry 98 99 100 12/26/20 14:15 12/26/20 14:47 Temperature Pulse Rate 105 H 104 H Respiratory Rate 20 16 Blood Pressure 104/57 L Pulse Oximetry 98 96 Oxygen Delivery Method Room Air Narrative Exam Narrative: Alert and oriented x3. No apparent distress. Pupils are equally round and reactive to light and accommodation. Extraocular muscles are intact. Sclerae are pink and nonicteric. No lymph nodes are felt head, neck, supraclavicular are. There is no thyromegaly JVD is less than 6 cm No carotid bruits are heard Heart is tachycardic regular rhythm no murmur Lungs are clear to auscultation bilaterally Abdomen is soft, bowel sounds positive, nontender, no organomegaly Neurological exam the patient is diffusely weak 2/5 in the lower extremities and 4/5 in the upper extremities. Deep tendon reflexes are symmetrically decreased bilaterally There is no tremor Decreased sensation in the legs Unable to stand or walk Skin he has thick scaling skin rash/redness in both lower extremities starting below the knees and extending into both feet. The scaling is thick and builtup especially on the lower ankles. The socks were ingrown to the skin of his feet and had to be cut away. The smell of necrotic tissue is overwhelming when the coverings are removed from his feet. There is no ankle edema There is no jaundice Objective Labs Result Diagrams: 12/26/20 12:53 12/26/20 12:53 Labs: Laboratory Results - last 24 hr 12/26/20 12/26/20 12/26/20 12:53 12:53 12:53 WBC 12.1 H RBC 3.48 L Hgb 11.9 L Hct 34.4 L MCV 99.0 MCH 34.2 H MCHC 34.5 RDW 13.1 Plt Count 466 H Neut % (Auto) 80.4 H Lymph % (Auto) 12.3 L [place] % (Auto) 5.6 Eos % (Auto) 0.8 L Baso % (Auto) 0.9 Neut # (Auto) 9700 H Lymph # (Auto) 1500 [place] # (Auto) 700 Eos # (Auto) 100 Baso # (Auto) 100 Sodium 123 L Potassium 4.4 Chloride 92 L Carbon Dioxide 24 BUN 6 L Creatinine 0.65 L Estimated GFR > 60.0 BUN/Creatinine Ratio 9.2 Glucose 96 Lactate 1.7 Calcium 8.8 Total Bilirubin 0.3 AST 39 ALT 26 Alkaline Phosphatase 128 H Total Creatine Kinase CK-MB (CK-2) CK-MB (CK-2) Rel Index Troponin I NT-Pro-B Natriuret Pep Total Protein 7.0 Albumin 3.7 Globulin 3.3 Albumin/Globulin Ratio 1.1 Lipase 32 Procalcitonin 2.37 H SARS-CoV-2 (PCR) 12/26/20 12/26/20 12/26/20 12:53 13:05 13:05 WBC RBC Hgb Hct MCV MCH MCHC RDW Plt Count Neut % (Auto) Lymph % (Auto) [place] % (Auto) Eos % (Auto) Baso % (Auto) Neut # (Auto) Lymph # (Auto) [place] # (Auto) Eos # (Auto) Baso # (Auto) Sodium Potassium Chloride Carbon Dioxide BUN Creatinine Estimated GFR BUN/Creatinine Ratio Glucose Lactate Calcium Total Bilirubin AST ALT Alkaline Phosphatase Total Creatine Kinase 251 H CK-MB (CK-2) 4.75 H CK-MB (CK-2) Rel Index 1.9 Troponin I < 0.012 NT-Pro-B Natriuret Pep 96 Total Protein Albumin Globulin Albumin/Globulin Ratio Lipase Procalcitonin SARS-CoV-2 (PCR) Negative Negative Assessment & Plan Assessment & Plan narrative: This is a 60-year-old male with a long history of peripheral edema and hypertension who presents with severe lower extremity weakness beginning several months ago and progressing to the point where he could not get off the floor when he fell off his chair last evening at 7:00 p.m. Bilateral Lower Extremity Skin infection, present on admission. Active. -white blood count 12 with procalcitonin of 2.3 -apparent bilateral skin infection/cellulitis so will continue on cefazolin IV after receiving vancomycin and ceftriaxone in the emergency department. -He will need a wound care consult and possible debridement. There is no clear draining source to culture. Lower Extremity Weakness, present on admission. Active. -possible causes include sodium level of 123 secondary to chronic diuretic use. -magnesium level pending -consider neurologic workup if not improving/responding to sodium level correction Scaling Skin Rash/Stasis Dermatitis, present on admission. Active. -this appears to be a reactive edema related problem, likely lymphedema or bilateral venous insufficiency, no signs of CHF -treat with topical triamcinolone b.i.d. using the cream generously. -wound care consult requested for possible debridement and alternative treatments. Hypertension, present on admission. Active. Hold lisinopril, furosemide, hydrochlorothiazide until blood pressures rise and it would be appropriate to resume them. History of LE Edema, present on admission. Active. -likely venous insufficiency versus lymphedema, previously treated successfully with diuretics but now with hyponatremia related weakness. Hyponatremia, present on admission. Active. -admitting sodium level 123 -secondary to hydrochlorothiazide and furosemide -treat with IV saline infusion for a planned measured/slow correction pace Nicotine addiction, present on admission. Active -continue nicotine patch Daily alcohol use, present on admission. Active. -admits to 2 beers per day, follow for symptomatic withdrawal. Lovenox for DVT prevention His friend Ana Swift is his backup decision maker
[2020-12-26] MEDS: NICOTINE 21 MG PATCH TOP (15:48)
[2020-12-26] MEDS: LORazepam 2 MG/ML INJ 0.5 MG IV (15:50)
[2020-12-26 16:54] LABS: Magnesium 1.7 mg/dL (1.6-2.3)
[2020-12-26] MEDS: DEXTROSE 5%-0.9% NS 1,000 ML 100 ML IV (17:30)
[2020-12-26] MEDS: CEFAZOLIN 1 GM VIAL 2 GM IV (19:10)
--- NOTE | 2020-12-26 20:56 | PC.NURSE ---
1730- pt arrived to room 202 from ED via bed. A/O x4, 90% RA LS with ronchi wheeze to bilat upper [place], improved with cough, LL clear, Hx COPD, Asthma. Pt with cellulitis to bilat legs from knee to toes. Chronic LE edema, infetion, cellulitis bilat shins have severe thick dry scaly peeling weeping purulence skin and malodorous. pt reports he doesn't move much anymore, drinks 4 tall boys daily, monitoring for ETOH W/D. Pt current daily cigarette smoker with half of right hand, thumb, index and middle fingers severely stained by nicotine, skin is orange-katya/red. Pt without teeth or dentures. Using urinal, and bedpan for BM due to weakness and not able to get up or walk. RAC SL, RFA D5Ns @ 100 infusing. Pt reports I have scoliosis in my back. Using urinal w assist, will not hold penis or urinal himself. bedpan for BM. Call light in reach and bed alarm on for safety. Pt provided with dinner and fluids.
[2020-12-26] MEDS: SENNOSIDES 8.6 MG TABLET 17.2 MG PO (21:44)
[2020-12-26] MEDS: TRIAMCINOLONE 0.1% CREAM 1 APPLIC TOP (21:46)
[2020-12-26] MEDS: OXYCODONE/ACETAMINOPHEN 5/325 TABLET 1 TAB PO (21:54)
[2020-12-27] VITALS (8 sets, daily range): BP systolic 107–128; BP diastolic 77–84; PULSE 106–115; RESP 14–22; TEMP 36.4–37.3; O2SAT 92–99
[2020-12-27] MEDS: DEXTROSE 5%-0.9% NS 1,000 ML 100 ML IV ×2 (04:18→15:27)
[2020-12-27 06:14] LABS: Add Manual Diff / Slide Review NO; Basophils Absolute Auto 0 /uL (0-100); Basophils Percent Auto 0.3 % (0-2); Eosinophils Absolute Auto 100 /uL (0-450); Hematocrit 33.1 % (41-53); Hemoglobin 11.4 g/dL (13.5-17.5); Lymphocytes Absolute Auto 1000 /uL (1100-4500); Lymphocytes Percent Auto 10.6 % (25-40); Mean Corpuscular HGB Conc 34.5 % (30-36); Mean Corpuscular Hemoglobin 34.2 PG (26-34); Mean Corpuscular Volume 99.2 fL (80-100); Monocytes Absolute Auto 900 /uL (0-900); Monocytes Percent Auto 9.4 % (3-14); Neutrophils Absolute Auto 7300 /uL (1500-7000); Neutrophils Percent Auto 78.7 % (50-75); Platelet Count 426 X10^3/uL (150-400); Red Blood Cell Count 3.33 X10^6/uL (4.5-5.9); Red Cell Distribution Width 13.1 % (11.6-14.8); White Blood Cell Count 9.3 X10^3/uL (4.5-11.0)
[2020-12-27] MEDS: OXYCODONE/ACETAMINOPHEN 5/325 TABLET 1 TAB PO (06:23)
[2020-12-27 06:32] LABS: Alanine Aminotransferase 20 IU/L (<50); Albumin 3.2 g/dL (3.5-5.0); Albumin Globulin Ratio 1.1 (1.0-2.8); Alkaline Phosphatase 118 U/L (38-126); Aspartate Aminotransferase 31 IU/L (17-59); Bilirubin Total 0.5 mg/dL (0.2-1.3); Blood Urea Nitrogen 6 mg/dL (9-20); Calcium 8.5 mg/dL (8.4-10.2); Carbon Dioxide 28 mmol/L (22-32); Chloride 98 mmol/L (98-107); Estimated Glomerular Filt Rate > 60.0 mL/min (>60); Glucose 118 mg/dL (80-110); HEMOLYSIS < 15 (0-50); Potassium 4.3 mmol/L (3.4-5.1); Sodium 129 mmol/L (137-145); Total Protein 6.2 g/dL (6.3-8.2)
[2020-12-27 06:38] LABS: Hemoglobin A1C% w Est Avg Glu 4.9 % (4.0-6.0)
[2020-12-27] MEDS: ALBUTEROL 2.5 MG/3 ML NEB (ADULT) INH (06:39)
[2020-12-27] MEDS: NICOTINE 21 MG PATCH TOP (09:21)
[2020-12-27] MEDS: ENOXAPARIN 40 MG/0.4 ML SYRINGE SUBCUT (09:22)
[2020-12-27] MEDS: CEFAZOLIN 1 GM VIAL 2 GM IV ×4 (09:22→23:57)
--- NOTE | 2020-12-27 11:26 | DIET.PN ---
Dietary Progress Note RD screen of pt requiring wound consult. Sending ONS Armando bid to assist c wound healing.
--- NOTE | 2020-12-27 13:59 | PM.PN.1 ---
Subjective Subjective Interval history: Today he feels approximately the same, he has some pain on the underside of his foot where he had a shallow skin cracking. Otherwise he has not tried to get out of bed. Exam Vital Signs (past 8 hours): - 12/27/20 06:00 12/27/20 06:43 12/27/20 07:45 Temperature 98.7 F 98 F Pulse Rate 108 H 113 H Respiratory Rate 20 18 16 Blood Pressure 128/78 112/77 Pulse Oximetry 95 96 93 Oxygen Delivery Method Room Air Oxygen Flow Rate 0 Narrative Exam Narrative: GEN: Alert and oriented x3. No apparent distress. HEENT: PERRL, EOMI NECK: trachea midline, no JVD CV: tachycardic, with no murmurs PULM: clear bilaterally with no wheezes, rhonchi, rales ABD: soft, bowel sounds positive, nontender, no organomegaly NEURO: moving all extremities, cranial nerve 2-12 intact, decreased sensation bilaterally SKIN: thick scaly skin in bilteral lower extremities from knees to the feet, toes erythematous bilaterally Objective Labs Result Diagrams: 12/27/20 05:40 12/27/20 05:40 Labs: Laboratory Results - last 24 hr 12/26/20 12/26/20 12/27/20 12:53 13:05 05:40 WBC 9.3 RBC 3.33 L Hgb 11.4 L Hct 33.1 L MCV 99.2 MCH 34.2 H MCHC 34.5 RDW 13.1 Plt Count 426 H Neut % (Auto) 78.7 H Lymph % (Auto) 10.6 L [place] % (Auto) 9.4 Eos % (Auto) 1.0 L Baso % (Auto) 0.3 Neut # (Auto) 7300 H Lymph # (Auto) 1000 L [place] # (Auto) 900 Eos # (Auto) 100 Baso # (Auto) 0 Sodium Potassium Chloride Carbon Dioxide BUN Creatinine Estimated GFR BUN/Creatinine Ratio Glucose Hemoglobin A1c Calcium Magnesium 1.7 Total Bilirubin AST ALT Alkaline Phosphatase Total Protein Albumin Globulin Albumin/Globulin Ratio SARS-CoV-2 (PCR) Negative 12/27/20 12/27/20 05:40 05:40 WBC RBC Hgb Hct MCV MCH MCHC RDW Plt Count Neut % (Auto) Lymph % (Auto) [place] % (Auto) Eos % (Auto) Baso % (Auto) Neut # (Auto) Lymph # (Auto) [place] # (Auto) Eos # (Auto) Baso # (Auto) Sodium 129 L Potassium 4.3 Chloride 98 Carbon Dioxide 28 BUN 6 L Creatinine 0.60 L Estimated GFR > 60.0 BUN/Creatinine Ratio 10.0 Glucose 118 H Hemoglobin A1c 4.9 Calcium 8.5 Magnesium Total Bilirubin 0.5 AST 31 ALT 20 Alkaline Phosphatase 118 Total Protein 6.2 L Albumin 3.2 L Globulin 3.0 Albumin/Globulin Ratio 1.1 SARS-CoV-2 (PCR) [facility] Medical History (Updated 12/26/20 @ 16:28 by Joel Bañuelos MD) Alcohol dependence, daily use Hypertension Nicotine addiction Peripheral edema Surgical History (Updated 12/26/20 @ 16:28 by Joel Bañuelos MD) History of appendectomy Family History (Updated 12/26/20 @ 16:29 by Joel Bañuelos MD) Father Myocardial infarct Diabetes mellitus Mother Diabetes mellitus Myocardial infarct Stroke Social History household members: none Smoking Status: Current every day smoker Assessment & Plan Assessment & Plan narrative: 60M with PMH of lower extremity edema, HTN, who presents with worsening leg pain and weakness where he could not get out off floor after a fall. 1. Bilateral Lower Extremity Skin infection, present on admission. Active. -white blood count 12 with procalcitonin of 2.3 -apparent bilateral skin infection/cellulitis so will continue on cefazolin IV after receiving vancomycin and ceftriaxone in the emergency department. -He will need a wound care consult and possible debridement. There is no clear draining source to culture. 2. Lower Extremity Weakness, present on admission. Active. -possible causes include sodium level of 123 secondary to chronic diuretic use. Now improving to 129 -magnesium level pending -consider neurologic workup if not improving/responding to sodium level correction 3. Stasis dermatitis and Tinea pedis, present on admission. Active. -likely lymphedema is the cause -treat with clobetasol for stasis dermatitis -treat with ketoconazole for tinea -wound care consult requested for possible debridement and alternative treatments. 4. Hypertension, present on admission. Active. -hold lisinopril, furosemide, hydrochlorothiazide until blood pressures rise and it would be appropriate to resume them. 5. History of LE Edema, present on admission. Active. -likely venous insufficiency versus lymphedema, previously treated successfully with diuretics but now with hyponatremia related weakness. 6. Hyponatremia, present on admission. Active. -admitting sodium level 122 -secondary to hydrochlorothiazide and furosemide -treat with IV saline infusion for a planned measured/slow correction pace 7. Nicotine addiction, present on admission. Active -continue nicotine patch 8. Daily alcohol use, present on admission. Active. -admits to 2 beers per day, follow for symptomatic withdrawal. DVT ppx: Lovenox SC Diet: Cardiac Code: Full His friend Ana Jamison is his backup decision maker Quality VTE Deep Vein Thrombosis/Pulmonary Embolism Present on Admission: No
--- NOTE | 2020-12-27 14:16 | PT.IIE ---
Current Diagnoses Cellulitis of left lower limb (12/26/20) Medical History (Last Updated 12/26/20 @ 16:28 by Joel Bañuelos MD) Alcohol dependence, daily use Hypertension Nicotine addiction Peripheral edema Physical Therapy Inpatient Evaluation/Re-Eval M1 PT/OT-IP Prior Functional Status Start: 12/27/20 13:22 Freq: NEEDED Status: Active Protocol: Document 12/27/20 14:16 AW (Rec: 12/27/20 14:27 AW [id number]) Medical Review Prior Functional Status Medical History Reviewed Yes Communication Pt is able to make needs known . Mobility and Gait Pt reports independent mobility without AD at baseline. He has been walking less in the past few months, tracking ~3000 steps per day which he says is well below normal for him. Activities of Daily Living and IADL's Pt admits he can not don socks independently and is slow with LB dressing. He has struggled to shower but has been independent with toileting. Pt does not drive. He typically manges his own medications and does his own grocery shopping Prior Functional Level (Other details) Pt reports multiple falls, mostly on stairs and curbs. Social History Household Members none Living Arrangements Apartment/Condo Number of Floors (Floors) Two Floors Number of Stairs To Enter/Railing? Pt lives in 2nd floor apartment and has ~15 steps with narrow bilateral rails. He is able to use both at once . Home Environment Standard Height Toilet,Tub/ Shower Employment Status Retired Additional Social History Comment Pt lives alone in [place]. His friend, Ana, provides driving assist. Pt retired from [employer] last January out of concern for COVID and notes he has been walking much less since then. Pt states he sleeps in an office chair. He is concerned about the cleanliness of his apartment. M2 PT-IP Current Condition Start: 12/27/20 13:22 Freq: NEEDED Status: Active Protocol: Document 12/27/20 14:16 AW (Rec: 12/27/20 17:24 AW [id number]) Physical Therapy Current Condition Current Condition Evaluation Date 12/27/20 Treatment Diagnosis BLE cellulitis; generalized weakness; difficulty in walking Onset Date 12/26/20 Precautions Other Precautions Pt on CIWA protocol at time of evaluation. Falls. M3 PT-IP Subjective Start: 12/27/20 13:22 Freq: NEEDED Status: Active Protocol: Document 12/27/20 14:16 AW (Rec: 12/27/20 17:24 AW [id number]) Subjective Physical Therapy Visit Type Type Initial Evaluation Visit Start Time 13:40 Visit Stop Time 14:16 Total Visit Minutes 36 Physical Therapy Visit Comments Patient Comments Pt is willing to participate with PT Patient Goals Pt would like to improve his endurance and strength so that he can safely increase his activity Therapy Pain Assessment Pain When Pain Assessed During Mobility Pain Present Pain Present Pain Reported Location Bilateral Leg Scale Used pt unwilling to quantify Pain Behaviors Wincing Pain Management Techniques Distraction,Elevation, Modification of Treatment M4 PT-IP Mobility and Gait Start: 12/27/20 13:22 Freq: NEEDED Status: Active Protocol: Document 12/27/20 14:16 AW (Rec: 12/27/20 17:24 AW [id number]) PT-Bed Mobility Assessment Supine to Sit Supine to Sit Minimal Assistance,1 Person Assistance Scooting Scooting to Edge of Bed Minimal Assistance PT-Transfer Assessment Sit to and From Stand Sit to and from Stand Minimal Assistance,1 Person Assistance,Use of Upper Extremities Equipment Transfer Assistive Device Gait Belt,Front Wheeled Walker Orthotic/Prosthetic Devices or Brace: No Transfers Transfer Destination Chair Transfer Technique Stand Step Pivot Transfer Ability Level of Assist Contact Guard Assistance Comments Mobility Comments Pt was sitting up in bed as PT arrived. I haven't been out of bed since Saturday. Pt needed assist to don socks and then moved his legs toward left side of the bed, needing min assist to fully sit up and to scoot toward EOB. Pt stood min A x 1 and used FWW to walk 3 feet to the chair, transferring CGA. Pt agreed to ambulate more, standing CGA to min assist from the chair. He used the FWW to ambulate 30 feet around the room and transferred back to the chair CGA. Pt was positioned on the chair with call light and tray table in reach. PT advised CAPTAIN CANNERY TENDER that a chair alarm might be warranted. Gait Assessment Gait Gait Assistance Required: Contact Guard Assist Distance (Feet) 30 Able to Maintain Weight Bearing Status Yes During Gait Assistive Devices Assistive Device Gait Belt,Front Wheeled Walker Orthotic/Prosthetic Devices or Brace: No Gait Deviations General Gait Pattern Antalgic,Decreased Stride Length,Decreased Feet Clearance,Flexed Trunk Factors Limiting Gait Function Factors Limiting Gait Function Decreased Activity Tolerance, Decreased Sensation,Decreased Strength,Pain,Poor Balance, Poor Safety Awareness Comments Gait Comments See mobility comments for details. Stair Climbing Assessment Comments Stair Climbing Comments Not assessed. PT-Balance Assessment Sitting Balance and Reactions Static Sitting Balance Ability Good Dynamic Sitting Balance Ability Fair Standing Balance and Reactions Static Standing Balance Ability Fair Dynamic Standing Balance Ability Fair Device Used FWW Balance Tests Single Limb Standing unable Comments Other Balance Tests/Deviations/Treatment Pt transferred bed <> chair : with FWW CGA. M5 PT-IP Objective Assessments Start: 12/27/20 13:22 Freq: NEEDED Status: Active Protocol: Document 12/27/20 14:16 AW (Rec: 12/27/20 17:24 AW [id number]) Orientation Orientation/Cognition Level of Alertness Alert Orientation Name,Day of Week,Place, Situation Language Function Ability No Deficits Noted Safety Awareness Decreased Safety Awareness Gross Range of Motion Upper Extremity ROM Assessment Within Functional Limits Lower Extremity ROM Assessment Within Functional Limits Strength Lower Extremity Strength Assessment Bilaterally Impaired Comments Strength Comments Globally 4-/5 Sensation Assessment Sensation Gross Sensation Right LE Impaired,Left LE Impaired Light Touch Impaired Muscle Tone Muscle Tone WNL Yes Other Assessments Other Other Assessments B LE skin is scaly and weepy with venous statis dermatitis; needing extra care to avoid shear force. M6 PT-IP Treatment Start: 12/27/20 13:22 Freq: NEEDED Status: Active Protocol: Document 12/27/20 14:16 AW (Rec: 12/27/20 17:24 AW [id number]) Physical Therapy Treatment Education Education Provided Safety Other Treatments Other Treatment Performed Educated pt on rationale for use of an assistive device and PT plan of care. M7 PT-IP Assessment and Plan Start: 12/27/20 13:22 Freq: NEEDED Status: Active Protocol: Document 12/27/20 14:16 AW (Rec: 12/27/20 17:24 AW [id number]) PT Summary Assessment and Plan Potential Rehabilitation Potential Fair Status of Condition at Evaluation Evolving Summary Impairments Pain,Strength,Balance, Sensation,Bed Mobility, Transfers,Gait,Activity Tolerance Assessment Summary Bello is a 60 yo man admitted with B LE cellulitis and complaints of weakness and recent falls. He lives alone in a second floor apartment in [place] but has a friend who assists with driving. On evaluation, pt required CGA to min assist for mobility with FWW. PT will continue to assess gait quality and safety with FWW or SPC. Pt will likely be safe to discharge home with assistive device once medically cleared. Will conduct stair assessment/ training prior to discharge to ensure pt can safely access his apartment. Goals Bed Mobility Goal Independent Transfer Goal Independent,Four Wheeled Walker Gait Goal Independent,Front Wheel Walker Gait Distance 200 Other Goals - up/down 15 steps with B rails SBA LTG: improve ambulation to 200 feet with LRAD or no AD SBA Days to Meet Goals 5 Frequency of Treatment Frequency Of Treatment Once a Day Treatment Plan Physical Therapy Treatment Plan Bed Mobility Training,Transfer Training,Gait Training, Therapeutic Exercise,Balance Retraining,Discharge Planning Other Recommendations and Next Treatment progress gait training; assess Focus gait with SPC or no AD if appropriate Precautions Other Precautions - Pt on CIWA protocol at time of evaluation. - Falls. Recommendations To Nursing Amount of Assist Needed 1 Person Assist Discharge Recommendations PT Discharge Recommendations Home with Assistance Equipment Needed for Home Before may need FWW Discharge Transportation Needs at Discharge Private Vehicle
--- NOTE | 2020-12-27 16:18 | PC.NURSE ---
Assumed care of pt at 1100. Pt resting in bed. Legs elevated glass technologist on absorbent pads. Wound care in to consult. Stated we should continue with topical creams and leave RONAK. P.T. assessed and trans pt to chair. Now 1 PA w/fww. Legs continue to be elevated. Hx of ETOH use. Pt states last drink Sun 12/25. Verbalized understanding of ETOH withdrawal and states he will notify staff if s/s occur.
--- NOTE | 2020-12-27 16:22 | CM.DANOTE ---
Discharge Planning/Care Management DCP: assessment: case received, EMR reviewed and discussed in Team Rounds. Met now with pt and introduced self and role. Pt is a 60 year old male who admitted yesterday afternoon to care of hospitalist team PCP: Whitney Candelario (says has not seen her for 6 months) Payer: [employer]. Admission status: INPT: confirmed by UR RN [place] PT is retired from many years in the [employer]. Says gets a pension of $1000 a month and am not considered disabled. Pt lives alone, says up until a couple days ago was able to get around ok. I walk slowly. I go to [facility] which takes me about 15 minutes and can get whatever I need there. He has an application for [employer] but has not filled it out. I don't think I qualify. Does admit to daily alcohol use and is on CIWA. Says has decreased his daily beer use since having severe withdrawal symtoms about a year and a half ago. POC in process...Follow for d/c needs as these become clearer. CM Discharge Assessment Start: 12/27/20 16:20 Freq: Status: Active Protocol: Document 12/27/20 16:20 ITV (Rec: 12/27/20 16:22 ITV [id number]) Discharge Planning Assessment Advance Directives? No History Provided By Patient,Medical Record Prior Living Arrangements Apartment/Condo Household Members none Is patient alert and oriented? Yes DME Already Rented / Owned Other Comment sleeps in a computer chair. Review Status In Process
[2020-12-27] MEDS: KETOCONAZOLE 2% CREAM 15 GM 1 APPLIC TOP (20:33)
[2020-12-27] MEDS: SENNOSIDES 8.6 MG TABLET 17.2 MG PO (20:33)
[2020-12-27] MEDS: CLOBETASOL 0.05% OINTMENT 30 GM 1 APPLIC TOP (20:34)
[2020-12-28 03:35] VITALS: BP 125/84; PULSE 99; RESP 20; TEMP 37.1; O2SAT 96
[2020-12-28 07:30] VITALS: BP 102/71; PULSE 123; RESP 14; TEMP 36.8; O2SAT 93
[2020-12-28] MEDS: CEFAZOLIN 1 GM VIAL 2 GM IV ×3 (07:41→23:39)
[2020-12-28] MEDS: ENOXAPARIN 40 MG/0.4 ML SYRINGE SUBCUT (08:43)
[2020-12-28 08:44] LABS: Hematocrit 32.3 % (41-53); Hemoglobin 11.2 g/dL (13.5-17.5); Mean Corpuscular HGB Conc 34.7 % (30-36); Mean Corpuscular Hemoglobin 34.4 PG (26-34); Mean Corpuscular Volume 99.3 fL (80-100); Platelet Count 385 X10^3/uL (150-400); Red Blood Cell Count 3.25 X10^6/uL (4.5-5.9); White Blood Cell Count 5.7 X10^3/uL (4.5-11.0)
[2020-12-28] MEDS: NICOTINE 21 MG PATCH TOP (08:44)
[2020-12-28] MEDS: CLOBETASOL 0.05% OINTMENT 30 GM 1 APPLIC TOP ×2 (08:45→21:39)
[2020-12-28] MEDS: KETOCONAZOLE 2% CREAM 15 GM 1 APPLIC TOP ×2 (08:45→21:39)
[2020-12-28 08:58] LABS: BUN Creatinine Ratio 8.5 (6-22); Blood Urea Nitrogen 5 mg/dL (9-20); Calcium 8.7 mg/dL (8.4-10.2); Carbon Dioxide 28 mmol/L (22-32); Chloride 101 mmol/L (98-107); Estimated Glomerular Filt Rate > 60.0 mL/min (>60); Glucose 135 mg/dL (80-110); HEMOLYSIS < 15 (0-50); Potassium 4.1 mmol/L (3.4-5.1); Sodium 132 mmol/L (137-145)
[2020-12-28 11:30] VITALS: BP 122/82; PULSE 113; RESP 14; TEMP 36.8; O2SAT 99
[2020-12-28] MEDS: DEXTROSE 5%-0.9% NS 1,000 ML 100 ML IV (11:59)
--- NOTE | 2020-12-28 12:06 | PT.IPTN ---
Current Diagnoses Cellulitis of left lower limb (12/26/20) Physical Therapy Treatment Note M2 PT-IP Current Condition Start: 12/27/20 13:22 Freq: NEEDED Status: Active Protocol: Document 12/27/20 14:16 AW (Rec: 12/27/20 17:24 AW [id number]) Physical Therapy Current Condition Current Condition Evaluation Date 12/27/20 Treatment Diagnosis BLE cellulitis; generalized weakness; difficulty in walking Onset Date 12/26/20 Precautions Other Precautions Pt on CIWA protocol at time of evaluation. Falls. M3 PT-IP Subjective Start: 12/27/20 13:22 Freq: NEEDED Status: Active Protocol: Document 12/28/20 11:15 SP (Rec: 12/28/20 13:57 SP [id number]) Subjective Physical Therapy Visit Type Type Treatment Note Visit Start Time 11:15 Visit Stop Time 12:06 Total Visit Minutes 51 Number of CHANNEL MARKETING PROGRAM MANAGER Visits 1 Physical Therapy Visit Comments Patient Comments Pt willing to work with therapy. Pt stated hasn't spoke with anyone yet regarding assisting him at home, wound management and cleaning apartment to decrease further worsening infection of leg wounds. Patient Goals Pt would like to improve his endurance and strength so that he can safely increase his activity at home, concerned about returning home plan with his leg wounds and pain in standing more than laying down is having when flexes his toes R>L. Therapy Pain Assessment Pain When Pain Assessed During Mobility Pain Present Pain Present Pain Reported Location Bilateral Leg Intensity 7 Scale Used 0/10 at rest, 7/10 during mobility flexing R>L toes on plantar surface. Pain Behaviors Facial Grimacing,Guarding Pain Management Techniques Distraction,Re-positioning, Timing of Activity with Medications M4 PT-IP Mobility and Gait Start: 12/27/20 13:22 Freq: NEEDED Status: Active Protocol: Document 12/28/20 11:15 SP (Rec: 12/28/20 13:57 SP [id number]) PT-Bed Mobility Assessment Supine to Sit Supine to Sit Contact Guard Assistance Scooting Scooting to Edge of Bed Contact Guard Assistance PT-Transfer Assessment Sit to and From Stand Sit to and from Stand Contact Guard Assistance, Minimal Assistance,1 Person Assistance,Use of Upper Extremities Equipment Transfer Assistive Device Gait Belt,Front Wheeled Walker Orthotic/Prosthetic Devices or Brace: No Transfers Transfer Destination Chair Transfer Technique Pt ambulated using fWW. Transfer Ability Level of Assist Standby Assistance,Contact Guard Assistance,Use of Upper Extremities Comments Mobility Comments Pt was elevated supine in bed when arrived. HOB flat supine> sit and scoot to EOB CGA with extra time due to decrease strength. Sit>stand usign FWW, cues for pushing up from bed, not on FWW. SPT bed>chair using FWW CGA with noted unsteady and mod WB BUE on FWW . CHANNEL MARKETING PROGRAM MANAGER managed IV pole throughout tx. Sit>stand from chair pushing from arm rests Min A, was able to walk around room to door using fWW CG> SBA and further distance into hallway and to stairs w/ wc follow but not needed, step to gait with report of 7/10 pain over plantar surface of R>L all mid toes and unsure why. Pt was able to ascend/ descend 15 stairs using BHR step to patterning CGA as has do complete at home, 1 stop stand rest before last 3 steps for tiring recovery. Pt ambulated back to room using FWW, improved moderat step over step patterning with continued Mod BUE WB onFWW for support, wc followed but not needed, total of 220 ft. Pt returned to chair when back in room SBA using FWW. Pt had all needs in reach, applied chair alarm for safety due to not completely steady on his feet. Gait Assessment Gait Gait Assistance Required: Contact Guard Assist Distance (Feet) 220 Able to Maintain Weight Bearing Status Yes During Gait Assistive Devices Assistive Device Gait Belt,Front Wheeled Walker Orthotic/Prosthetic Devices or Brace: No Gait Deviations General Gait Pattern Antalgic,Decreased Stride Length,Decreased Feet Clearance,Flexed Trunk,Narrow Based Gait,Step-to Gait Factors Limiting Gait Function Factors Limiting Gait Function Decreased Activity Tolerance, Decreased Sensation,Decreased Strength,Limited Range of Motion,Pain,Poor Balance,Poor Safety Awareness Comments Gait Comments See mobility comments. Stair Climbing Assessment Evaluation Level of Assist On Stairs Contact Guard Assistance Devices Stair Climbing Assistive Devices Left Railing,Right Railing Technique/Endurance Stair Climbing Direction Ascend and Descend Stair Climbing Technique Step to Step Number of Steps Climbed 3 Stair Climbing Set # Repetitions (reps) 5 Comments Stair Climbing Comments see mobility comments. PT-Balance Assessment Sitting Balance and Reactions Static Sitting Balance Ability Normal Dynamic Sitting Balance Ability Fair Standing Balance and Reactions Static Standing Balance Ability Fair Dynamic Standing Balance Ability Fair Device Used FWW M5 PT-IP Objective Assessments Start: 12/27/20 13:22 Freq: NEEDED Status: Active Protocol: Document 12/27/20 14:16 AW (Rec: 12/27/20 17:24 AW [id number]) Orientation Orientation/Cognition Level of Alertness Alert Orientation Name,Day of Week,Place, Situation Language Function Ability No Deficits Noted Safety Awareness Decreased Safety Awareness Gross Range of Motion Upper Extremity ROM Assessment Within Functional Limits Lower Extremity ROM Assessment Within Functional Limits Strength Lower Extremity Strength Assessment Bilaterally Impaired Comments Strength Comments Globally 4-/5 Sensation Assessment Sensation Gross Sensation Right LE Impaired,Left LE Impaired Light Touch Impaired Muscle Tone Muscle Tone WNL Yes Other Assessments Other Other Assessments B LE skin is scaly and weepy with venous statis dermatitis; needing extra care to avoid shear force. M6 PT-IP Treatment Start: 12/27/20 13:22 Freq: NEEDED Status: Active Protocol: Document 12/28/20 11:15 SP (Rec: 12/28/20 13:57 SP [id number]) Physical Therapy Treatment Education Education Provided Safety Other Treatments Other Treatment Performed Reducated pt on rationale for use of an assistive device for WB support, agreed need use of one for home, was dispensed to him. M7 PT-IP Assessment and Plan Start: 12/27/20 13:22 Freq: NEEDED Status: Active Protocol: Document 12/28/20 11:15 SP (Rec: 12/28/20 13:57 SP [id number]) PT Summary Assessment and Plan Potential Rehabilitation Potential Fair Status of Condition at Evaluation Evolving Summary Impairments Pain,Strength,Balance, Sensation,Bed Mobility, Transfers,Gait,Activity Tolerance Progress Towards Goals Progressing Toward Goals,Slow Progress due to Pain,Slow Progress due to Medical Issues ,Slow Progress due to Activity Tolerance Assessment Summary Pt reports has had falls in the past mainly due to foot not clearing the step. Pt requires CG- Min A during initial sit>stand then reduced to CGA, sBA during gait using fww with Mod BUE WB on FWW, BLEs little unsteady with reported pain over plantar surface of B toes when flexes them mostly during gait/stair mgt, CGA during stair mgt x15 steps. Pt would benefit from continued skilled services to improve strength, endurance and added OT consult to address assistance required to don socks and difficulty donning pants but able to do with increased time. Will continue to assess progress. CHANNEL MARKETING PROGRAM MANAGER dispensed FWW order for home use due to DC order in place, discussed concern of wounds and assistance for dressing to nursing, care mgt per pt request on how will be helped at home under his uncleanly home set up/ situation. Goals Bed Mobility Goal Independent Transfer Goal Independent,Four Wheeled Walker Gait Goal Independent,Front Wheel Walker Gait Distance 200 Other Goals - up/down 15 steps with B rails SBA LTG: improve ambulation to 200 feet with LRAD or no AD SBA Days to Meet Goals 5 Frequency of Treatment Frequency Of Treatment Once a Day Treatment Plan Physical Therapy Treatment Plan Bed Mobility Training,Transfer Training,Gait Training, Therapeutic Exercise,Balance Retraining,Discharge Planning Other Recommendations and Next Treatment progress gait training; assess Focus gait with SPC or no AD if appropriate Precautions Other Precautions - Pt on CIWA protocol at time of evaluation. - Falls. Recommendations To Nursing Amount of Assist Needed 1 Person Assist Discharge Recommendations PT Discharge Recommendations Home with Assistance Equipment Needed for Home Before IH inpt CHANNEL MARKETING PROGRAM MANAGER dispensed FWW am Discharge tx. Transportation Needs at Discharge Private Vehicle
--- NOTE | 2020-12-28 15:03 | OT.IP.EVAL ---
Current Diagnoses Cellulitis of left lower limb (12/26/20) Past Medical History (Last Updated 12/26/20 @ 16:28 by Joel Bañuelos MD) Alcohol dependence, daily use History of appendectomy Hypertension Nicotine addiction Peripheral edema Surgical History (Last Updated 12/26/20 @ 16:28 by Joel Bañuelos MD) History of appendectomy Occupational Therapy Inpatient Evaluation/Re-Eval M1 PT/OT-IP Prior Functional Status Start: 12/27/20 13:22 Freq: NEEDED Status: Active Protocol: Document 12/28/20 14:25 [facility] (Rec: 12/28/20 16:16 [facility] [id number]) Medical Review Prior Functional Status Medical History Reviewed Yes Communication Pt is able to make needs known . Mobility and Gait Pt reports independent mobility without AD at baseline. He has been walking less in the past few months, tracking ~3000 steps per day which he says is well below normal for him. Activities of Daily Living and IADL's Pt admits he can not don socks independently and is slow with LB dressing. He has struggled to shower but has been independent with toileting. Pt does not drive. He typically manges his own medications and does his own grocery shopping When talking to OT pt states just sponges off and does not shower. Prior Functional Level (Other details) Pt reports multiple falls, mostly on stairs and curbs. Social History Household Members none Living Arrangements Apartment/Condo Number of Floors (Floors) Two Floors Number of Stairs To Enter/Railing? Pt lives in 2nd floor apartment and has ~15 steps with narrow bilateral rails. He is able to use both at once . Home Environment Standard Height Toilet,Tub/ Shower Employment Status Retired Additional Social History Comment Pt lives alone in [place]. His friend, Ana, provides driving assist. Pt retired from [employer] last January out of concern for COVID and notes he has been walking much less since then. Pt states he sleeps in an office chair. He is concerned about the cleanliness of his apartment. M2 OT-IP Current Condition Start: 12/28/20 15:48 Freq: Status: Active Protocol: Document 12/28/20 14:25 [facility] (Rec: 12/28/20 16:16 [facility] [id number]) Occupational Therapy Current Condition Current Condition Evaluation Date 12/28/20 Treatment Diagnosis BLE cellulitis Diagnosis Onset Date 12/26/20 M3 OT- IP Subjective and Pain Start: 12/28/20 15:48 Freq: Status: Active Protocol: Document 12/28/20 14:25 [facility] (Rec: 12/28/20 16:16 [facility] [id number]) OT- Subjective Occupational Therapy Visit Type Type Initial Evaluation Visit Start Time 14:25 Visit Stop Time 15:03 Total Visit Minutes 38 Occupational Therapy Visit Comments Patient Comments Pt in the recliner and agreed to work with OT for OT eval. Patient/Caregiver Goals To go home when able to get his apartment cleaned up so that he can move downstairs. OT Pain Assessment Pain When Pain Assessed During Mobility Pain Present Pain Present Pain Reported M4 OT- IP ADL's Start: 12/28/20 15:48 Freq: Status: Active Protocol: Document 12/28/20 14:25 [facility] (Rec: 12/28/20 16:16 [facility] [id number]) OT [id number] Comments OT Self-Feeding Comments Not at meal time. OT ADL-Grooming Comments OT Grooming Comments Pt not wanting to do at this time. OT ADL-Oral Care Comments Oral Care Comments Pt refused and states has no teeth. OT ADL-Dressing General Eval Lower Body Dressing Ability Standby Assistance Comments OT Dressing Comments Pt able to elvis/doff his socks with increased time. At this time due to pt's poor skin quality as it is scaly and weeping it would be best that he does not use any adaptive equipment for LB dressing as the equipment may be cause more issues with his skin. For example that his skin is so wet that the sock aid will not slide over his feet and possible shear his skin when being pulled on. Able to give pt information list of places to get equipment if needed and when appropriate. OT ADL-Toileting General Evaluation Toileting Ability Independent Comments OT Toileting Comments Pt with use of FWW able to walk in to the bathroom and use the toilet and do his own hygiene needs on his own. Nursing aid notified of urine and bowel movement. OT ADL-Bathing Comments OT Bathing Comments NOt at this time. M5 OT- IP IADL's Start: 12/28/20 15:48 Freq: Status: Active Protocol: Document 12/28/20 14:25 [facility] (Rec: 12/28/20 16:16 [facility] [id number]) OT-Instrumental Activities of Daily Living Home Safety Awareness Ability to Problem Solve Emergency Able to Problem Solve Situations Home Safety Comments Pt states that his apartment is not safe to go home to and that it needs to be cleaned up before he can return. Pt states is trying to have a friend help him to get his apartment cleaned and also so that he may be able to move to a downstairs apartment. Medication Management Medication Management Comments Pt states does his own pills. Money Management Money Management Comments Pt states does his own finances. Driving Driving Comments Pt states no longer drives. M6 OT- IP Functional Cognition Start: 12/28/20 15:48 Freq: Status: Active Protocol: Document 12/28/20 14:25 [facility] (Rec: 12/28/20 16:16 [facility] [id number]) Cognitive Factors Limiting Selfcare Function Cognitive Ability Level of Alertness Alert Patient Orientation Name,Age,Date,Year,Day of Week ,Place,Situation Attention Span Ability Capable of Focused Attention, Capable of Sustained Attention Ability to Follow Commands Able to Follow One Step Commands Memory Description Short Term Impaired Safety Awareness Underestimates Need for Assistance Cognitive Tests SLUMS Pt scored 22/30 which implies cognitive deficits for pt. Pt having most difficulty with STM. Pt able to recall 2/5 words after time passed, not able to states 4 digit number backwards, not able to draw correctly the hours of the clock after time given, and able to answer 3/4 questions right after paragraph read. Cognitive Comments Cognitive Assessment Comments Pt states has noticed that he does not remember as well as he use to . Pt typically writes times down on a calendar on his front door to remind his of appointments. Educated pt to try to be proactive in his care. Pt insists that the doctor has come to talk to him but did not tell him anything . However when asked if he was able to ask the doctor questions, pt states, No, he did not tell me anything and that I can not go home cause my apartment is not ready. Pt also insistent that he does not want to have any home health until he is able to get his apartment cleaned up. Pt has decreased insight and judgment to his needs. When asked if he has ever seen a reprint sorter for his skin, pt states no as not able to get a ride due to all his friends are and busy with their own lives. Not sure if this is pt's baselne for cognition, to continue to assess pt's needs. Pt states sleeps in a rolling office chair as home instead of his bed and states his legs feel better when down versus up on the bed. When pointing out decreased safety of rolling chair to sleep in for fear of falling, pt did admit that he fell out of the chair one time. OT- Vision and Hearing OT- Hearing Assessment OT- Hearing Assessment WFL OT- Vision Assessment Visual Acuity Glasses All The Time M7 OT- IP Mobility and Balance Start: 12/28/20 15:48 Freq: Status: Active Protocol: Document 12/28/20 14:25 [facility] (Rec: 12/28/20 16:16 [facility] [id number]) OT-Transfer Assessment Sit to and From Stand Sit to and from Stand Standby Assistance Transfers Transfer Ability Standby Assistance Technique Transfer Destination Chair,Toilet Transfer Technique Stand Step Pivot Devices Transfer Assistive Devices Gait Belt,Front Wheeled Walker Comments Mobility Comments SBA with FWW to walk in to and from the bathroom. OT- Gait Assessment Comments Gait Ability Comments SBA with FWW in the room. OT- Balance Assessment Sitting Balance and Reactions Static Sitting Balance Ability Normal Dynamic Sitting Balance Ability Good Standing Balance and Reactions Static Standing Balance Ability Fair Dynamic Standing Balance Ability Fair M8 OT- IP Objective Assessments Start: 12/28/20 15:48 Freq: Status: Active Protocol: Document 12/28/20 14:25 [facility] (Rec: 12/28/20 16:16 [facility] [id number]) OT Gross Range of Motion Upper Extremity Range of Motion Assessment Within Functional Limits OT Strength Upper Extremity Strength Assessment Within Functional Limits M9 OT- IP Assessment and Plan Start: 12/28/20 15:48 Freq: Status: Active Protocol: Document 12/28/20 14:25 [facility] (Rec: 12/28/20 16:16 [facility] [id number]) OT Summary Assessment and Plan Potential Rehabilitation Potential Fair Analytic Complexity at Evaluation Moderate Summary OT Impairments Pain,Balance,Functional Cognition,Functional Mobility, Dressing,Bathing,Shower Transfers,Activity Tolerance Progress Towards Goals Slow Progress due to Medical Issues,Slow Progress due to Cognition Assessment Summary Pt mod complexity and main barriers are steps, medical needs of his cellulitis, and mainly SBA for all ADl needs. Pt scored 22/30 on the SLUMS which implies decreased cognition. In addition pt has decreased insight and judgment to his needs. Pt would benefit from assist at home, however lives alone and home health. Goals Grooming Goal Independent Dressing Goal Independent Toileting Goal Independent Bathing Goal Independent Toilet Transfer Goal Independent Shower Transfer Goal Independent Days to Meet Goals 5 Frequency of Treatment Frequency Of Treatment Once a Day Treatment Plan OT Treatment Plan ADL Training,Functional Cognition Training,Functional Mobility,Patient/Family Education,Discharge Planning Other Treatment Recommendations and Next GO over memory strategies. Treatment Focus Discharge Recommendations OT Discharge Recommendations Home with Assistance,Home Health Home Equipment Needs possible shower chair, FWW already issued Transportation Needs at Discharge Private Vehicle
[2020-12-28 16:00] VITALS: BP 136/87; PULSE 107; RESP 20; TEMP 36.8; O2SAT 98
--- NOTE | 2020-12-28 16:24 | CM.DPC ---
DCP Discharge home with HH Per , pt is medically stable to d/c home today with outpt follow up for wound care and HH. Per PT/OT, pt able to ambulate but recommends walker and GUSTAVO placed orders and they issued pt a walker but concerns about pt's 15 steps to enter and apt that is somewhat full of hoarded items. GUSTAVO met bedside with pt and explained role and discussed pt's living situation and confirmed that his life long friend Ana [phone] is helping to clean his apt and coordinate services for pt. Pt has been trying to get set up with [employer] and additional assist but seems to struggle with follow through. Pt has not applied for Medicaid at this time or completed the appllication for [employer]. GUSTAVO discussed d/c to [facility] for a night or so while friends clean his apt and get it more ready for him and his wounds. Pt states he is agreeable and overwhelmed with all that he needs to do with his apt. GUSTAVO helped pt call Yana at [facility] and discussed that taxi likely can be set up for pt to d/c once Motel identified. GUSTAVO called pt's friend Ana and discussed that pt has no medical justification to remain at hospital and she confirms she just spoke to pt and aware he will go to a motel in [facility] with hopefully HH RN/PT/OT/SIZING END BANDER/RETIREMENT SALES CONSULTANT to help with coordination of services and then she plans to help get pt to a motel in [place] for a few nights while they clean the apt and make it more habitable. GUSTAVO provided her with contact info for [facility] clinic [facility] [employer] information to determine if he qualifies for Medicaid or other in home services and HH info. Ana very appreciative. GUSTAVO updated RN and claims account specialist. GUSTAVO called [facility] and discussed pt situation and they will need to run his insurance to see if they are contracted. GUSTAVO faxed facesheet and clinicals to review and [facility] likely will have to call tomorrow to confirm if they can accept him. F2F signed and completed but not faxed as waiting to confirm they can accept. orders completed. MAXWELL Vargas
--- NOTE | 2020-12-28 16:33 | CM.SWNOTE ---
FAMILY RESOURCE SPECIALIST Note FAMILY RESOURCE SPECIALIST receives call from Yana from [facility]. Yana reports she has secured a one night [facility] stay voucher for patient at [facility] at [address] Yana reports she spoke with patient regarding this and he declined because he needs more than a one night stay. Yana states that she will wait to cancel the voucher as patient may change his mind. FAMILY RESOURCE SPECIALIST calls nurse station with report and FAMILY RESOURCE SPECIALIST is informed that coordinator is speaking with patient at this time regarding his POC options. Plan: POC to be determined based on patient's decision to accept one night stay at [facility]. MAXWELL Andrade
--- NOTE | 2020-12-28 18:03 | PM.PN.1 ---
Subjective Subjective Date Patient Seen: 12/28/20 Time Patient Seen: 08:00 Interval history: Today he feels improved. Still has some pain in his legs, but it is better. He has worked with PT. He has no fevers or chills Exam Vital Signs (past 8 hours): - 12/28/20 11:30 12/28/20 16:00 Temperature 98.3 F 98.2 F Pulse Rate 113 H 107 H Respiratory Rate 14 20 Blood Pressure 122/82 136/87 Pulse Oximetry 99 98 Oxygen Delivery Method Room Air Oxygen Flow Rate 0 Narrative Exam Narrative: GEN: Alert and oriented x3. No apparent distress. HEENT: PERRL, EOMI NECK: trachea midline, no JVD CV: tachycardic, with no murmurs PULM: clear bilaterally with no wheezes, rhonchi, rales ABD: soft, bowel sounds positive, nontender, no organomegaly NEURO: moving all extremities, cranial nerve 2-12 intact, decreased sensation bilaterally SKIN: thick scaly skin in bilteral lower extremities from knees to the feet, toes erythematous bilaterally Objective Labs Result Diagrams: 12/28/20 08:33 12/28/20 08:33 Labs: Laboratory Results - last 24 hr 12/28/20 12/28/20 08:33 08:33 WBC 5.7 RBC 3.25 L Hgb 11.2 L Hct 32.3 L MCV 99.3 MCH 34.4 H MCHC 34.7 RDW 13.0 Plt Count 385 Sodium 132 L Potassium 4.1 Chloride 101 Carbon Dioxide 28 BUN 5 L Creatinine 0.59 L Estimated GFR > 60.0 BUN/Creatinine Ratio 8.5 Glucose 135 H Calcium 8.7 PFSH Medical History (Updated 12/26/20 @ 16:28 by Joel Bañuelos MD) Alcohol dependence, daily use Hypertension Nicotine addiction Peripheral edema Surgical History (Updated 12/26/20 @ 16:28 by Joel Bañuelos MD) History of appendectomy Family History (Updated 12/26/20 @ 16:29 by Joel Bañuelos MD) Father Myocardial infarct Diabetes mellitus Mother Diabetes mellitus Myocardial infarct Stroke Social History household members: none Smoking Status: Current every day smoker Assessment & Plan Assessment & Plan narrative: 60M with PMH of lower extremity edema, HTN, who presents with worsening leg pain and weakness where he could not get out off floor after a fall. 1. Bilateral Lower Extremity Skin infection, present on admission. Active. -white blood count 12 with procalcitonin of 2.3 on admission, now improved to 5.7 -apparent bilateral skin infection/cellulitis so will continue on cefazolin IV after receiving vancomycin and ceftriaxone in the emergency department. -He will need a wound care consult 2. Lower Extremity Weakness, present on admission. Active. -possible causes include sodium level of 123 secondary to chronic diuretic use. Now improving to 132 -weakness much improved 3. Stasis dermatitis and Tinea pedis, present on admission. Active. -likely lymphedema is the cause -treat with clobetasol for stasis dermatitis -treat with ketoconazole for tinea -wound care consult requested for possible debridement and alternative treatments. 4. Hypertension, present on admission. Active. -hold lisinopril, furosemide, hydrochlorothiazide until blood pressures rise and it would be appropriate to resume them. 5. History of LE Edema, present on admission. Active. -likely venous insufficiency versus lymphedema, previously treated successfully with diuretics but now with hyponatremia related weakness. 6. Hyponatremia, present on admission. Active. -admitting sodium level 122 -secondary to hydrochlorothiazide and furosemide -treat with IV saline infusion for a planned measured/slow correction pace 7. Nicotine addiction, present on admission. Active -continue nicotine patch 8. Daily alcohol use, present on admission. Active. -admits to 2 beers per day, follow for symptomatic withdrawal. DVT ppx: Lovenox SC Diet: Cardiac Code: Full His friend Ana Swift is his backup decision maker Patient is stable for discharge from a medical standpoint to discharge with antibiotics. Quality VTE Deep Vein Thrombosis/Pulmonary Embolism Present on Admission: No
[2020-12-28 19:44] VITALS: BP 133/87; PULSE 104; RESP 18; TEMP 36.6; O2SAT 100
[2020-12-28 23:00] VITALS: BP 107/70; PULSE 115; RESP 18; TEMP 37.2; O2SAT 94
[2020-12-29 03:08] VITALS: BP 111/75; PULSE 99; RESP 18; TEMP 36.6; O2SAT 94
[2020-12-29] MEDS: DEXTROSE 5%-0.9% NS 1,000 ML 100 ML IV (04:53)
[2020-12-29 06:03] LABS: BUN Creatinine Ratio 12.1 (6-22); Blood Urea Nitrogen 7 mg/dL (9-20); Calcium 8.4 mg/dL (8.4-10.2); Carbon Dioxide 26 mmol/L (22-32); Chloride 102 mmol/L (98-107); Estimated Glomerular Filt Rate > 60.0 mL/min (>60); Glucose 111 mg/dL (80-110); HEMOLYSIS < 15 (0-50); Potassium 4.4 mmol/L (3.4-5.1); Sodium 130 mmol/L (137-145)
[2020-12-29 08:00] VITALS: BP 121/79; PULSE 97; RESP 16; TEMP 36.6; O2SAT 94
--- NOTE | 2020-12-29 08:04 | P.DS_ITS ---
History of Present Illness History of Present Illness Date Patient Seen: 12/29/20 Time Patient Seen: 07:30 Chief complaint: legs are swollen and legs look infected Narrative: This is a 60-year-old male with a long history of peripheral edema and hypertension who presents with severe lower extremity weakness beginning several months ago and progressing to the point where he could not get off the floor when he fell off his chair last evening at 7:00 p.m. It took him 1 hour to get up on his knees. He eventually called his friend, who called paramedics to assist him and he was brought to the emergency department today. He is found to have a severe rash/infection of the chronic edema area on both lower legs and feet. His socks are ingrown to his skin and have to be cut off leaving a residual necrotic rotting smell. He is unable to say how long it has been since he changed his socks or why he did not remove them. He has had trouble walking for ?months?. He is unable to specify any clearer than that. He lives on his own. He is on hydrochlorothiazide, furosemide and potassium chloride for edema. Upon admit he was found to have no fever but his procalcitonin is 2.3 and his white blood count is 12. His lactate level is only mildly elevated at 1.7. He will be treated with IV cefazolin and a wound care consult will be requested. His sodium level is 123, which could be contributing to his weakness. A magnesium level will also be done. Today on discharge patient continues to be afebrile with stable vital signs. WBC has normalized at 5.7, sodium 130, potassium 4.4. Patient's pain has decreased to a manageable 6/10, no erythema and noted on exam of lower extremities, +1 pitting blanchable edema noted. Patient has continued lower extremity scaling blistering in varied levels of healing, p.o. pulses intact. Cellulitis resolved. Discharge Providers Provider Date of admission: 12/26/20 15:08 Discharge Date: 12/29/20 Consults: 12/26/20 15:39 Consult to Wound Care Routine Comment: Consulting Provider: [facility] 12/27/20 11:44 Consult to Physical Therapy Evaluate & Treat Comment: Physician Instructions: Evaluate and Treat 12/28/20 12:19 Consult to Home Health Routine Comment: Cellulitis Reason For Exam: Set up FWW for home use at discharge 12/28/20 13:07 Consult to Occupational Therapy Evaluate & Treat Comment: Physician Instructions: Evaluate and treat 12/28/20 16:52 Consult to Home Health Routine Comment: bilateral cellulitis, hypernatremia Reason For Exam: Set up HH RN/PT/OT/CLIENT ADMINISTRATOR/TUTOR Discharge provider: GAEL Aleman Summary Hospital Course Discharge Diagnosis: 1. Bilateral Lower Extremity Skin infection, present on admission. Active. 2. Lower Extremity Weakness, present on admission. Active. 3. Stasis dermatitis and Tinea pedis, present on admission. Active. 4. Hypertension, present on admission. Active. 5. History of LE Edema, present on admission. Active. 6. Hyponatremia, present on admission. Active. 7. Nicotine addiction, present on admission. Active 8. Daily alcohol use, present on admission. Active. Hospital Course: Patient was admitted with a bilateral lower extremity edema possible cellulitis, resulting in lower extremity weakness in the setting of stasis dermatitis and tinea pedis. Patient likely has bilateral lower chronic venous stasis vs. lymphedema. Patient's overall lack of ambulation and activity contributed to his development of cellulitis which was treated with IV Vancomycin and Rocephin in ED followed by cefazolin IV daily upon admit. Pa t[place] will be changed to p.o. Keflex 500 mg 4 times daily x7 days. Patient's blood pressure medications lisinopril which HCTZ and Lasix was held due to decreased blood pressures. The patient's systolic blood pressures while in the hospital ranged from 100-110. Based on this will send patient home without blood pressure medications, recommend that he keep a log of daily blood pressures at home and take those in to follow-up with his primary care within 1 week. Patient also received IV fluids for gentle correction of hyponatremia, sodium 130 today. Patient's p.o. potassium was also held, potassium today 4.4. Patient was also given ketoconazole topically 4 tinea pedis, clobestasol topical ly for status dermatitis. Patient received physical therapy and wound care consult while in the hospital. Patient to receive outpatient referral for wound care and Podiatry follow up. Discussed the importance of continued follow-up medical care as an outpatient to prevent further complications and to be compliant with his medication regimen. Status at Discharge Cognitive/behavioral status at discharge: oriented Functional status at discharge: uses cane/walker Overall status at discharge: patient is back to baseline Time Spent with Patient Time spent: Less than 30 minutes Exam Vital Signs (past 8 hours): - 12/29/20 03:08 Temperature 97.9 F Pulse Rate 99 H Respiratory Rate 18 Blood Pressure 111/75 Pulse Oximetry 94 Oxygen Delivery Method Room Air Oxygen Flow Rate 0 Narrative Exam Narrative: GEN: Alert and oriented x3. No apparent distress. HEENT: PERRL, EOMI NECK: trachea midline, no JVD CV: tachycardic, with no murmurs PULM: clear bilaterally with no wheezes, rhonchi, rales ABD: soft, bowel sounds positive in all 4 quadrants, nontender, no organomegaly NEURO: moving all extremities, cranial nerve 2-12 intact, decreased sensation bilaterally SKIN: thick scaly skin in bilteral lower extremities from knees to the feet, toes mild resolving erythematous bilaterally, cracking to bilateral plantar side of toes, noted equal bilateral +1 blanchable nonpitting edema, pedal pulses intact. Objective Labs Result Diagrams: 12/28/20 08:33 12/29/20 05:20 Labs: Laboratory Results - last 24 hr 12/28/20 12/28/20 12/29/20 08:33 08:33 05:20 WBC 5.7 RBC 3.25 L Hgb 11.2 L Hct 32.3 L MCV 99.3 MCH 34.4 H MCHC 34.7 RDW 13.0 Plt Count 385 Sodium 132 L 130 L Potassium 4.1 4.4 Chloride 101 102 Carbon Dioxide 28 26 BUN 5 L 7 L Creatinine 0.59 L 0.58 L Estimated GFR > 60.0 > 60.0 BUN/Creatinine Ratio 8.5 12.1 Glucose 135 H 111 H Calcium 8.7 8.4 PFSH Medical History Alcohol dependence, daily use Hypertension Nicotine addiction Peripheral edema Surgical History History of appendectomy Family History Father Myocardial infarct Diabetes mellitus Mother Diabetes mellitus Myocardial infarct Stroke Social History household members: none Smoking Status: Current every day smoker Discharge Assessment & Plan Assessment and Plan Assessment: 60M with PMH of lower extremity edema, HTN, who presents with worsening leg pain and weakness where he could not get out off floor after a fall. 1. Bilateral Lower Extremity Skin infection, present on admission. Resolving -white blood count 12 with procalcitonin of 2.3 on admission, now improved to 5.7 -apparent bilateral skin infection/cellulitis so will continue on cefazolin IV after receiving vancomycin and ceftriaxone in the emergency department. Has been changed to oral Keflex 500 mg q.i.d. x7 days for discharge -He will need a wound care referral for outpatient follow-up 2. Lower Extremity Weakness, present on admission. Active. -possible causes include sodium level of 123 secondary to chronic diuretic use. Now improving to 130 -weakness much improved -patient will need home health to continue to work on physical mobility and strength. Patient able to ambulate with walker and one-person assist. -home health referral on discharge 3. Stasis dermatitis and Tinea pedis, present on admission. Active. -likely lymphedema is the cause -treat with clobetasol for stasis dermatitis -treat with ketoconazole for tinea -Out patient wound care consult requested for possible debridement and alternative treatments. 4. Hypertension, present on admission. Active. -hold lisinopril, furosemide, hydrochlorothiazide until blood pressures rise and it would be appropriate to resume them. -will not send patient home on blood pressure medications as his systolic blood pressure remained between 100-110 during hospitalization. Recommend the patient keep a one-week log of at-home blood pressures and follow up with primary care within 1 week. 5. History of LE Edema, present on admission. Active. -likely venous insufficiency versus lymphedema, previously treated successfully with diuretics but now with hyponatremia related weakness. -will continue to hold patient's diuretics until he can be assessed by his PCP within 1 week for follow-up due to the hyponatremia. 6. Hyponatremia, present on admission. Active. -admitting sodium level 122 today sodium 130 -secondary to hydrochlorothiazide and furosemide -treat with IV saline infusion for a planned measured/slow correction pace-IV replacement stopped upon discharge. Recommend patient to repeat lab work within 1 week to include follow-up with PCP. 7. Nicotine addiction, present on admission. Active -continue nicotine patch -patient educated regarding nicotine cessation 8. Daily alcohol use, present on admission. Active. -admits to 2 beers per day, follow for symptomatic withdrawal. -patient educated regarding alcohol cessation. Discharge Plan Discharge Plan Patient Disposition: Home Health Service Transfer to: Home Health, Other Provider Discharge Comment: You were admitted with infection of lower legs and low sodium. The infection is resolved but please complete 4 days of additional oral medication. You suffer from chronic lower leg swelling (edema) which means you will need to continue with home health, physical therapy and follow-up with your primary care. You will require continued wound care, home health support and podiatry care. Also please follow-up with your primary care within 1 week regarding your blood pressure and sodium levels. You are likely to develop another infection if you do not receive ongoing care for your lower legs. Discharge orders & Medications Prescriptions: New cephalexin 250 mg Capsule 500 mg PO QID 4 Days Qty: 32 RF: 0 clobetasol 0.05 % Ointment 1 applic topical BID Qty: 15 RF: 0 ketoconazole 2 % Cream 1 applic topical BID Qty: 15 RF: 0 Continued albuterol sulfate [ProAir HFA] 90 mcg/actuation HFA aerosol inhaler 2 puff INHALATION Q4H PRN (Reason: Wheezing) RF: 0 Discontinued furosemide 40 mg tablet 40 mg PO QAM RF: 0 lisinopril 20 mg tablet 20 mg PO QAM RF: 0 potassium chloride 20 mEq tablet,ER particles/crystals 20 meq PO QAM RF: 0 lisinopril-hydrochlorothiazide 20-25 mg tablet 1 tab PO QAM RF: 0 Follow up/Referrals: Shoryt Lopez ARNP [Advanced Repeat Photocomposing Machine Operator] - Mike Peoples MD [Physician] - Melony Wood DPM [Non-Staff] - Discharge Health Status Health Concerns: Concerned that patient will not follow up with PCP regarding blood pressure and sodium, wound care, Podiatry for lower extremity infection cellulitis, peripheral edema, venous stasis, possible chronic lymphedema. And home health for physical therapy and mobility assist. Care Plan Goals: Patient to follow-up with PCP within 1 week regarding blood pressure and sodium levels. To follow-up with wound care, Podiatry, home health-for continued management of patient's lower extremity bilateral edema, venous stasis, cellulitis. Diet/Activity/Treatments Diet: Diet as Tolerated Activity: Up with 1 person assist, continue with outpatient home health care for physical rehabilitation, and use of a walker. Skin/Wound/Dressing Care Report to your healthcare provider any signs of infection, such as:: chills, fever, night sweats, increased pain, unusual drainage and unusual redness Dressing: No dressings applied at this time. Other wound treatment: Apply ketoconazole a thin layer to toes ., ap twice daily ply clobetasol a thin layer to lower extremities twice daily. Visit Report/Discharge Packet Instructions: DI for Cellulitis -- Adult, DI for Edema Due to Venous Stasis, DI for Peripheral Edema -- Bilateral Quality VTE Deep Vein Thrombosis/Pulmonary Embolism Present on Admission: No
[2020-12-29] MEDS: NICOTINE 21 MG PATCH TOP (08:37)
[2020-12-29] MEDS: cephALEXin 250 MG CAPSULE 500 MG PO (08:37)
[2020-12-29] MEDS: ENOXAPARIN 40 MG/0.4 ML SYRINGE SUBCUT (08:38)
--- NOTE | 2020-12-29 09:17 | CM.DPNOTE ---
Addendum entered by María Mohr 12/29/20 11:50: [facility] does not cover [place]. I faxed packet and spoke to Keren at [facility]. She will call me after they review this information. María Mohr CM Asst. Original Note: Lashon from [facility] called and said they do not accept pts. insurance. I faxed referral packet to [facility]. María Mohr. KENIA Asst.
[2020-12-29] MEDS: CLOBETASOL 0.05% OINTMENT 30 GM 1 APPLIC TOP (09:53)
[2020-12-29] MEDS: KETOCONAZOLE 2% CREAM 15 GM 1 APPLIC TOP (09:53)
[2020-12-29] MEDS: OXYCODONE/ACETAMINOPHEN 5/325 TABLET 1 TAB PO (10:19)
--- NOTE | 2020-12-29 10:40 | PC.NURSE ---
Pt is dressed and ready for discharge home with friend. IV's have been removed. Pharmacy met with Pt and performed medication education. Went over d/c meds, time of last dose, reviewed stroke education, WC follow up and follow up with PCP. New meds sent to [facility] in [place]. Pt denies further questions and will be ready to leave via w/c by ADULT PAROLE OFFICER with friend and all belongings.
--- NOTE | 2020-12-29 11:12 | CM.DPNOTE ---
DC Note According to Dr Huerta, patient being discharged today and will need transport home to his second floor apt Met w/patient, reviewed DCP- patient explained his friend Ana is on her way to transport patient to a single level hotel room for a few days while friends prepare his apt for his return No needs identified from this COMPUTER PROGRAMMER today, home w/friends and close outpatient f/u recommended JW
--- NOTE | 2020-12-29 13:48 | CM.DPNOTE ---
Late entry: Keren from [facility] called and accepted pt., but cannot visit until week of 01/09. She will make him a priority due to wound care. Relayed information to Lana. María Mohr CM Asst.
== END 2020-12-29 11:31 | disposition home health service (06) | DRG 603 ==
LOC: ED 15:06 → AC 15:10
PROVIDERS: Internal Medicine; Nurse Practitioner Family; Admitting Provider Family Medicine; Emergency Provider Emergency Medicine; Referring Provider Emergency Medicine; Visit Provider Family Medicine
DX: L03.116 Cellulitis of left lower limb (principal); E87.1 Hypo-osmolality and hyponatremia; I96 Gangrene, not elsewhere classified; L03.115 Cellulitis of right lower limb; F10.20 Alcohol dependence, uncomplicated; F17.210 Nicotine dependence, cigarettes, uncomplicated; B35.3 Tinea pedis; R53.1 Weakness; I87.2 Venous insufficiency (chronic) (peripheral); I10 Essential (primary) hypertension; R60.0 Localized edema; Z20.822 Contact with and (suspected) exposure to COVID-19
CPT/HCPCS: 36415; 71045; 80048; 80053; 81003; 82550; 82553; 83036; 83605; 83690; 83735; 83880; 84145; 84484; 85025; 85027; 87040; 87635; 93005; 94640; 96365; 96368; 96375; 97116; 97162; 97166; 97530; 99284; 99406; C9803; J0690; J0696; J1650; J2060; J7613